=== PATIENT | female | born 1960 | race Caucasian/White ===

== ENCOUNTER 2021-04-17 09:15 | Emergency (ER) | payer MEDICAID, SELFPAY ==
[2021-04-17 09:23] VITALS: BMI 34.3
[2021-04-17 09:37] VITALS: BP 110/72; PULSE 70; RESP 18; O2SAT 93
--- NOTE | 2021-04-17 09:45 | XRR_ITS ---
PROCEDURE INFORMATION: Exam: XR Left Knee Exam date and time: 04/17/2021 9:45 AM Age: 61 years old Clinical indication: Injury or trauma; Fall; Blunt trauma; Knee; Left; Additional info: Injury/fall TECHNIQUE: Imaging protocol: XR Left knee. Views: 3 views. COMPARISON: No relevant prior studies available. FINDINGS: Bones/joints: Sequela of left total knee arthroplasty in expected alignment. Negative for fracture. No signs of hardware loosening. Soft tissues: Normal. XR/XR knee LT 3V* [id number] IMPRESSION: No acute findings. Radiation Dose CTDIVOL = (mGy): DLP = (mGy-cm)
--- NOTE | 2021-04-17 09:45 | XRR_ITS ---
PROCEDURE INFORMATION: Exam: XR Right Foot Exam date and time: 04/17/2021 9:45 AM Age: 61 years old Clinical indication: Injury or trauma; Fall; Blunt trauma; Foot; Right; Additional info: Pain swelling to digit TECHNIQUE: Imaging protocol: XR Right foot. Views: 1 or 2 views. COMPARISON: No relevant prior studies available. FINDINGS: Bones/joints: Osseous structures are intact. No evidence of fracture. Mild degenerative narrowing of the 1st MTP. Otherwise the joint spaces are preserved. Moderate sized calcaneal spur noted. Soft tissues: Normal. XR/XR foot RT 2V [id number] IMPRESSION: No acute findings. Radiation Dose CTDIVOL = (mGy): DLP = (mGy-cm)
--- NOTE | 2021-04-17 09:45 | W.ED.EXTPRO ---
HPI - Extremity Problem General: Chief complaint: Extremity Problem,Nontraumatic Stated complaint: FALL, LEG/ FEET PAIN Time Seen by Provider: 04/17/21 09:23 Source: patient, family and old records reviewed Mode of arrival: ambulatory History of Present Illness: HPI Narrative: 61-year-old female presents to emergency department chief complaint of left knee pain after falling she reports that she has had some right-sided toe pain has been ongoing and swelling to this third digit of the right toe for quite some time reports that she developed a toe fungal infection to the toes in the right foot which she has been treating outpatient she reports that due to walking differently on that foot she recently tripped and fell directly onto her left knee. MD Complaint: extremity pain, extremity swelling, joint swelling and joint pain Onset (ago): day(s) (2) Pain Consistency: constant Location: left and knee Quality: aching and sharp Radiation: none Relieving factors: immobilization Exacerbating factors: range of motion and weight bearing Associated symptoms: Reports no associated symptoms; Deny chest pain, fever(s) or rash Review of Systems General: Reports: 10 or more systems reviewed and unremarkable except in HPI and below Const: Denies: fever(s), chills, fatigue or malaise Eyes: Denies: change in vision or blurry vision Card: Denies: chest pain or palpitations Resp: Denies: dyspnea or productive cough GI: Denies: abdominal pain, nausea or vomiting : Denies: flank pain Musc: Reports: extremity pain, extremity swelling, joint swelling, joint redness and limited range of motion Skin/Breast: Denies: rash or pruritus Neuro: Denies: headache(s) Psych: Denies: anxiety or depression Reji/Lymph: Denies: easy bleeding All/Imm: Denies: urticaria, throat swelling or facial swelling PFSH ED PFSH: Medical History Anxiety GERD (gastroesophageal reflux disease) History of supraventricular tachycardia Ablation done 2001 HTN (hypertension) Hx of colonic polyps Irritable bowel syndrome with diarrhea Obesity (BMI 30-39.9) Osteoarthritis involving multiple joints on both sides of body Surgical History History of hysterectomy History of left knee replacement Hx of foot surgery Hx of melanoma excision Hx of tonsillectomy Family History Mother Cancer Stroke Dementia Hypertension Grandfather Diabetes Father Cancer Social History Alcohol intake: current Alcohol intake frequency: few times a week Marital status: Number of children: 2 Number of grandchildren: 6 Current occupational status: unemployed and disabled Physical Exam Const: COMMON NORMALS: no acute distress, patient oriented x3 and healthy appearing HENMT: COMMON NORMALS: normocephalic and atraumatic HEAD & SCALP: normocephalic and atraumatic Eye: COMMON NORMALS: Equal, round and reactive pupils present and EOMs intact bilaterally PUPIL: Yes Equal, round and reactive pupils present Neck/C-Spine: COMMON NORMALS: full ROM, supple and no JVD Lymph: LYMPHATIC: no lymphadenopathy noted Chest: COMMONS NORMALS: normal inspection of the chest and normal palpation of entire chest wall Resp: COMMON NORMALS: normal respiratory effort, No retractions and clear to auscultation bilaterally EFFORT & INSPECTION: Yes able to speak in complete sentences and Yes symmetric chest movement AUSCULTATION: clear to auscultation bilaterally Cardio: COMMON NORMALS: no JVD, regular rate and regular rhythm RATE: regular rate RHYTHM: regular rhythm GI: COMMON NORMALS: Normal to inspection, nondistended, normoactive bowel sounds present, Soft to palpation and non-tender INSPECTION: Yes normal to inspection PALPATION: Yes Soft to palpation : COMMON NORMALS: Yes no CVA tenderness BLADDER/KIDNEY EXAM: Yes no CVA tenderness Back/Pelvis: COMMON NORMALS: no CVA tenderness Extremity: NARRATIVE EXTREMITY EXAM: Moderate swelling appreciated to the second right great toe concerning for secondary cellulitis and possible paronychia. In addition there is moderate swelling pain and tenderness noted to the anterior left knee pain along the area of the patellar tendon as well as quadriceps tendon are prominent. Neurovascularly intact distally GENERAL: Yes weight-bearing difficulty LEFT LOWER EXTREMITY: Yes knee joint Neuro: COMMON NORMALS: patient oriented x3, CN's II-XII intact bilaterally, moves all extremities and no focal motor deficits Psych: COMMON NORMALS: mental status grossly normal, Normal thought process present, cooperative and normal affect THOUGHT PROCESS: Normal thought process present Skin: COMMON NORMALS: no rashes or lesions noted GENERAL SKIN EXAM: no rashes or lesions noted Course ED course: Due to the patient symptom condition x-ray imaging of the knee and the right foot were obtained this reveals no obvious bony abnormality I believe the patient has internal derangement of the left knee will be treating her accordingly in regards to the right toe I believe the patient has a secondary cellulitis. She will be started antibiotics for this. Advised that she further follow-up primary care doctor 2 to 3 days which was advised to return in the interim if any of her symptoms persist or worse. Vital Signs: Vital signs: Vital Signs Pulse Rate 70 04/17/21 09:37 Respiratory Rate 18 04/17/21 09:37 Blood Pressure 110/72 04/17/21 09:37 Pulse Oximetry 93 04/17/21 09:37 Discharge Plan Discharge Patient Disposition: Home Clinical Impression: Cellulitis, Internal derangement of left knee Condition: Stable Prescriptions: New hydrocodone-acetaminophen 5-325 mg tablet 1 tab PO Q8H PRN (Reason: pain) Qty: 15 RF: 0 cephalexin 500 mg capsule 500 mg PO TID 7 Days Qty: 21 RF: 0 No Action amlodipine 5 mg tablet 5 mg PO BID Qty: 180 RF: 3 clonidine HCl 0.2 mg tablet 0.2 mg PO BID Qty: 180 RF: 3 colestipol 1 gram tablet 2 g PO BID Qty: 360 RF: 3 fluoxetine 40 mg capsule 40 mg PO DAILY Qty: 90 RF: 3 losartan 100 mg tablet 100 mg PO DAILY Qty: 90 RF: 3 metoprolol succinate 100 mg tablet extended release 24 hr 200 mg PO DAILY Qty: 180 RF: 3 omeprazole 20 mg capsule,delayed release(DR/EC) 20 mg PO BID Qty: 180 RF: 3 Discharge Orders: Discharge ED (Routine); Ordered 04/17/21 Ordered By: Alexx Metz Discharge Activity: Limit activity as instructed and Use walker/crutches as instructed Patient Instructions: Cellulitis (ED), Knee Pain (ED), Knee Immobilizer (ED), Opioid Safety Activity Restrictions/Additional Instructions: Please follow-up with your primary care doctor in 2 to 3 days, take medications as prescribed use the knee immobilizer as well as crutches and till seen by your primary care doctor and return in the interim if any of your symptoms persist or worse. Coding Level of Care Code ED Licensed Tax Consultant for Diana Fwd Exam Comprehensive
--- NOTE | 2021-04-17 12:26 | PC.NURSE ---
Patient denied receipt of chrutches citing she has a pair at home already. notified.
[2021-04-17 12:28] VITALS: BP 122/84; PULSE 67; RESP 14; O2SAT 93
== END 2021-04-17 12:25 | disposition home or self-care (01) ==
PROVIDERS: Emergency Provider Emergency Medicine
DX: M23.92 Unspecified internal derangement of left knee (principal); L03.031 Cellulitis of right toe; I10 Essential (primary) hypertension; Z96.652 Presence of left artificial knee joint
CPT/HCPCS: 29530; 73562; 73620; 99283

== ENCOUNTER → 2021-06-08 10:28 | Outpatient (BNVA) | payer SELFPAY | PROVIDERS: Visit Provider Specialist | DX: M25.562 Pain in left knee (principal); Z96.652 Presence of left artificial knee joint | CPT/HCPCS: 73560; 73565 ==

== ENCOUNTER → 2021-06-17 11:07 | Outpatient (BNVA) | payer SELFPAY | PROVIDERS: Visit Provider Surgery | DX: Z20.822 Contact with and (suspected) exposure to COVID-19 (principal); Z86.010 Personal history of colon polyps | CPT/HCPCS: 87635 ==

== ENCOUNTER 2021-06-23 07:05 | Day surgery (SDC) | payer MEDICAID, SELFPAY ==
[2021-06-20 12:43] VITALS: BMI 34.3
--- NOTE | 2021-06-23 07:33 | ANES.PREANE2 ---
Pre-Anesthetic Assessment Pre-Anesthetic Assessment: Height/Weight: Height 1.63 m Weight 90.718 kg Preop Diagnosis: Colonoscopy Proposed Procedure: Operation Date: 06/23/21 08:15 Proposed Procedures p Colonoscopy 63279 Z86.010(Not Applicable) - Garry Perdomo MD Familial anesthetic complications: None Was Beta Florentin taken within 24 hours: Yes Was Clonidine taken within 24 hours: N/A Social: Social History: No alcohol and No tobacco Exam: Pre-Anes Outpt Exam: alert, oriented x 3, clear to auscultation bilaterally and regular rate & rhythm Airway: Submandibular: WNL Cervical ROM: WNL MP: 2 Dentition: Chipped Additional comments: Missing teeth History/ROS: No significant history except as noted and No significant complaints Pulmonary: Pulmonary: None reported CV/HEM: CV/HEM: HTN : : None reported Hepatic: Hepatic: None reported GI: GI: GERD Metabolic: Metabolic: None reported Musc/skel: Musc/skel: None reported Neuropsych: Neuropsych: Anxiety Anesthetic Plan: ASA status: 2 Anesthesia: Anesthesia Evaluation, General and MAC Other: We discussed risk, benefits, and anesthesia spectrum of MAC anesthesia including possible recall of intraop stimuli/pain. Patient agrees to proceed with MAC. Risk of > 500 ml blood loss (7ml/kg in children): No Other Pertinent Information: Brother 10 years ago in OR from complications of C. difficile PFSH Anesthesia PFSH: Medical History Anxiety GERD (gastroesophageal reflux disease) History of supraventricular tachycardia Ablation done 2001 HTN (hypertension) Hx of colonic polyps Irritable bowel syndrome with diarrhea Obesity (BMI 30-39.9) Osteoarthritis involving multiple joints on both sides of body Surgical History History of colonoscopy with polypectomy 4-5 years ago History of hysterectomy History of left knee replacement Hx of foot surgery Hx of melanoma excision Hx of tonsillectomy Family History Mother Cancer Stroke Dementia Hypertension Grandfather Diabetes Father Cancer Social History Alcohol intake: current Alcohol intake frequency: few times a week Marital status: Number of children: 2 Number of grandchildren: 6 Current occupational status: unemployed and disabled Data Anesthesia Cardiac Studies: No Data to Display
[2021-06-23] MEDS: sodium chloride 0.9% 1,000 ML 30 ML IV (07:49)
--- NOTE | 2021-06-23 08:24 | P.HP_ITS ---
Same Day Surgery H&P Indication for Procedure/HPI DATE OF PROCEDURE: June 23, 2021 CHIEF COMPLAINT/INDICATIONFOR SURGICAL PROCEDURE: Colon polyps PREOP DIAGNOSIS: Family history of colon cancer and personal history of colon po lyps PLANNED PROCEDRUE: Operation Date: 06/23/21 08:15 Proposed Procedures p Colonoscopy 96255 Z86.010(Not Applicable) - Garry Perdomo MD 04/14/2021 This is a pleasant 61 years old female patient presents to my practice with history of colon polyps. And intermittent bleeding per rectum. Patient also reports her mom had history of colon cancer age of 70. Last colonoscopy was done 5 years ago. She also reports when I asked her about the scar on her abdomen that was for melanoma of the anterior abdominal wall. Patient is referred today to discuss surveillance colonoscopy 06/23/2021 Patient comes today for surveillance colonoscopy ROS All systems have been reviewed negative except as per the above or per problem list Medications/Allergies* Allergies/Adverse Reactions Allergy/AdvReac Type Severity Reaction Status Date / Time amitriptyline Allergy Mild ALGY-Hives Verified 06/23/21 07:40 amoxicillin AdvReac Intermediate ADR-Diarrhe Verified 06/23/21 07:40 a HCTZ Allergy Severe SOB and Uncoded 06/23/21 07:40 Chest pain Current Medications: Generic Name Dose Route Start Last Admin Trade Name Freq PRN Reason Stop Dose Admin Sodium Chloride 1,000 mls @ 30 mls/hr 06/23/21 08:00 06/23/21 07:49 Sodium Chloride 0.9% IV 06/24/21 07:59 30 mls/hr .Q24H DANAE Administration Pertinent History/Comorbid Conditions* Medical History (Updated 06/09/21 @ 16:25 by Heydi Sapp MD) Anxiety GERD (gastroesophageal reflux disease) History of supraventricular tachycardia Ablation done 2001 HTN (hypertension) Hx of colonic polyps Irritable bowel syndrome with diarrhea Obesity (BMI 30-39.9) Osteoarthritis involving multiple joints on both sides of body Surgical History (Updated 06/09/21 @ 16:25 by Heydi Sapp MD) History of colonoscopy with polypectomy 4-5 years ago History of hysterectomy History of left knee replacement Hx of foot surgery Hx of melanoma excision Hx of tonsillectomy Family History (Updated 04/05/21 @ 11:04 by Marian Rodarte LPN) Mother Diabetes Grandfather Dementia Mother Cancer Mother Father Hypertension Mother Stroke Mother Social History Alcohol intake: current Alcohol intake frequency: few times a week Marital status: Number of children: 2 Number of grandchildren: 6 Current occupational status: unemployed and disabled Pertinent Exam Findings alert, oriented x 3 and procedure specific exam findings (Abdominal examination nontender nondistended soft) Recommendations Surgery/Procedure today (Surveillance colonoscopy) Other Plans: Plan of care; After thorough history and physical examination and reviewing the chart, plan to perform surveillance colonoscopy. I discussed with the patient in details the risks,benefits,alternatives and indications.The risk of aspiration, bleeding, soft tissue injury, perforation of the colon and other potential concomitant complications were explained to the patient in details,also the potential need for Laproscoy/Laparotomy to repair any related complications including but not limited to colectomy and or Closotomy.The patient understood this well and did agree to proceed. Rationale was carefully and clearly discussed with the patient.Appropriate informed consent have been reviewed and signed All questions have been answered and all concerns have been addressed to patient 's satisfaction. Verbal and written Instructions were given to the patient for colonoscopy prep Coding Level of Care Code Acute Hand Weaver for Diana Burden
[2021-06-23 08:45] VITALS: BP 86/53; PULSE 71; RESP 16; TEMP 36.1; O2SAT 94
[2021-06-23 08:56] VITALS: BP 104/69; PULSE 72; RESP 18; O2SAT 97
--- NOTE | 2021-06-23 10:33 | ANE.PACU2 ---
Inpatient post-anesthesia follow up: Airway intact: Yes Vital signs: Temperature 97.0 F Pulse Rate 72 Respiratory Rate 18 Blood Pressure 104/69 Pulse Oximetry 97 Oxygen Delivery Me thod Room Air Oxygen Flow Rate Fraction of Inspir ed Oxygen Hydration adequate: Yes Nausea and vomiting: No Pain level: 1 Mental status: Baseline
== END 2021-06-23 09:10 | disposition home or self-care (01) ==
PROVIDERS: Visit Provider Surgery
PROC: 0DJD8ZZ Inspection of Lower Intestinal Tract, Via Natural or Artificial Opening Endoscopic (ICD-10-PCS; CPT 45378; principal; 2021-06-23 08:15)
DX: Z12.11 Encounter for screening for malignant neoplasm of colon (principal); Z86.010 Personal history of colon polyps; Z80.0 Family history of malignant neoplasm of digestive organs; F41.9 Anxiety disorder, unspecified; K21.9 Gastro-esophageal reflux disease without esophagitis; E66.9 Obesity, unspecified; Z68.34 Body mass index [BMI] 34.0-34.9, adult; I10 Essential (primary) hypertension
CPT/HCPCS: 45378; J2704; J7030

== ENCOUNTER → 2021-07-01 08:22 | Outpatient (BNVA) | payer MEDICAID, SELFPAY | PROVIDERS: Visit Provider Family Medicine Adult Medicine | DX: I10 Essential (primary) hypertension (principal); H05.20 Unspecified exophthalmos; L03.115 Cellulitis of right lower limb; L03.116 Cellulitis of left lower limb; E66.9 Obesity, unspecified | CPT/HCPCS: 80053; 83036; 84443; 85025 ==

== ENCOUNTER 2021-07-11 14:58 | Emergency (ER) | payer MEDICAID, SELFPAY ==
[2021-07-11 15:21] VITALS: BP 131/88; PULSE 73; RESP 28; TEMP 36.2; O2SAT 100; BMI 36.0
--- NOTE | 2021-07-11 15:30 | XRR_ITS ---
PROCEDURE INFORMATION: Exam: XR Chest Exam date and time: 07/11/2021 3:30 PM Age: 61 years old Clinical indication: Shortness of breath; Additional info: SOB TECHNIQUE: Imaging protocol: XR of the chest. Views: 1 view. COMPARISON: CR XR knees AP WB w LT lmt ORTH 06/08/2021 10:36 AM FINDINGS: Lungs: Lungs are hyperinflated but clear. No consolidation. Pulmonary vascularity is within normal limits. Pleural spaces: Unremarkable. No pleural effusion. No pneumothorax. Heart/Mediastinum: Unremarkable. No cardiomegaly. Bones/joints: No acute abnormality. XR/XR chest 1V portable [id number] IMPRESSION: No acute findings.
[2021-07-11 15:44] LABS: Basophils # 0.1 10^3/uL (0.0-0.1); Basophils % 0.9 %; Eosinophils # 0.1 10^3/uL (0.0-0.8); Eosinophils % 0.6 %; Hematocrit 40.8 % (37.0-47.0); Hemoglobin 13.8 g/dL (11.5-15.3); Lymphocytes # 1.4 10^3/uL (0.8-4.8); Lymphocytes % 17.2 %; Mean Corpuscular HGB Conc 33.8 g/dL (30.0-36.0); Mean Corpuscular Hemoglobin 31.8 pg (28.0-34.0); Mean Platelet Volume 9.6 fL (7.4-10.4); Monocytes # 0.2 10^3/uL (0.2-0.9); Monocytes % 2.7 %; Neutrophils # 6.12 10^3/uL (1.8-7.7); Neutrophils % 78.2 %; Nucleated Red Blood Cells % 0 %; Platelet Count 375 10^3/cmm (130-400); Red Blood Count 4.34 10^6/uL (4.1-5.3); White Blood Count 7.8 10^3/uL (4.0-10.0)
[2021-07-11 16:05] LABS: Alanine Aminotransferase 65 U/L (0-33); Albumin Level 4.3 g/dL (3.5-5.2); Alkaline Phosphatase 153 IU/L (35-105); Aspartate Amino Transferase 107 U/L (0-32); Blood Urea Nitrogen 13 mg/dL (8-23); Calcium 9.4 mg/dL (8.5-10.5); Carbon Dioxide 16 mmol/L (22-29); Chloride 97 mmol/L (98-107); Globulin 3.2 g/dL (1.3-4.6); Glomerular Filtration Rate 38.2 mL/min (90-130); Glucose 135 mg/dL (65-115); Lipase 36 U/L (13-60); Osmolality Calculated 278 mOsm/kg (285-295); Sodium 133 mmol/L (136-145); Total Bilirubin 0.9 mg/dL (0.15-1.2); Total Protein 7.5 g/dL (6.6-8.7)
[2021-07-11 16:06] LABS: Troponin(5th) Baseline 24 ng/L (0-10)
[2021-07-11 16:14] LABS: Anion Gap 24.4 (5-19); Potassium 4.4 mmol/L (3.5-5.1)
--- NOTE | 2021-07-11 16:21 | USR_ITS ---
PROCEDURE INFORMATION: Exam: US Abdomen, Limited; Right Upper Quadrant Exam date and time: 07/11/2021 4:21 PM Age: 61 years old Clinical indication: Abdominal pain; Epigastric; Additional info: Upper ab pain, vomiting, elevated lfts TECHNIQUE: Imaging protocol: US abdomen. Real time ultrasound with image documentation. Limited exam focused on the right upper quadrant. COMPARISON: CR XR knees AP WB w LT lmt ORTH 06/08/2021 10:36 AM FINDINGS: Liver: Liver is enlarged measuring 17.4 cm in length. No masses. There is mild increased echogenicity of the liver with attenuation of the ultrasound beam which is most commonly due to fatty infiltration. Gallbladder: Normal. No gallstones. There is no gallbladder wall thickening. Gallbladder wall measures 2.3 mm in thickness. Common bile duct: Normal. No stones. No dilation. Common bile duct measures 2.9 mm. Pancreas: Obscured by bowel gas artifact. Right kidney: Normal. No mass. No hydronephrosis. Right kidney measures 9.4 cm in length. US/US gall bladder [id number] IMPRESSION: No acute findings. Probable fatty infiltration of the liver.
[2021-07-11] MEDS: ondansetron 2 mg/ML SDV 2 mL 4 MG IVP (16:35)
--- NOTE | 2021-07-11 16:35 | PC.NURSE ---
Jessie AGUAYO pulled by me given by Reyes Olson EMT-P
[2021-07-11 16:49] VITALS: BP 128/84; PULSE 76; RESP 22; O2SAT 99
--- NOTE | 2021-07-11 16:52 | ED_ITS ---
Documented by User: PAMELA Cook 07/11/21 16:54 HPI - Abdominal Pain General: Chief Complaint: Abdominal Pain Stated Complaint: SOB. ABD PAIN Time Seen by Provider: 07/11/21 16:51 Source: patient Mode of arrival: wheelchair Limitations: no limitations History of Present Illness: Patient is a 61-year-old female who presented to the ED today with complaint of upper abdominal/epigastric pain and repetitive episodes of vomiting. Symptoms initially started approximately 3 days ago and have progressed over the weekend. Lab work-up initiated from triage. [facility] ED PFSH: Medical History Anemia in chronic illness Anxiety Bilateral lower leg cellulitis Bulging eyes GERD (gastroesophageal reflux disease) History of supraventricular tachycardia Ablation done 2001 HTN (hypertension) Hx of colonic polyps Hypokalemia Hypothyroidism (acquired) Irritable bowel syndrome with diarrhea Obesity (BMI 30-39.9) Osteoarthritis involving multiple joints on both sides of body Surgical History History of colonoscopy with polypectomy 4-5 years ago History of hysterectomy History of left knee replacement Hx of foot surgery Hx of melanoma excision Hx of tonsillectomy Family History Mother Cancer Stroke Dementia Hypertension Grandfather Diabetes Father Cancer Social History Smoking and tobacco status: never smoked Alcohol intake: current Alcohol intake frequency: few times a week Marital status: Number of children: 2 Number of grandchildren: 6 Current occupational status: unemployed and disabled Course Vital Signs: Vital signs: Vital Signs Temperature 98.1 F 07/11/21 21:45 Pulse Rate 79 07/11/21 21:45 Respiratory Rate 18 07/11/21 21:45 Blood Pressure 151/79 07/11/21 21:45 Pulse Oximetry 99 07/11/21 21:45 MDM - Abdominal Pain Medical Decision Making Patient was eventually moved to vertical flow secondary to her being extremely uncomfortable out in the waiting room and repetitive episodes of vomiting. IV was established and IV zofran and morphine were ordered. I tried to go and assess patient but she was in [place] during that time. Care will be assumed by Jose C Saluda, PA-C for assessment and further work up if needed. Lab Data : 07/11/21 15:30 07/11/21 15:30 Labs/Radiology: Radiology Impressions Chest X-Ray 07/11/21 15:30 IMPRESSION: No acute findings. Gallbladder Ultrasound 07/11/21 16:21 IMPRESSION: No acute findings. Probable fatty infiltration of the liver. Abdomen/Pelvis CT 07/11/21 18:13 IMPRESSION: There is a segment of sigmoid colonic wall thickening consistent with mild acute colitis/diverticulitis. As an underlying colonic malignancy cannot be excluded, a follow-up examination after a course of treatment is recommended if clinically warranted. No abscess or free air. Laboratory Results WBC 7.8 10^3/uL (4.0-10.0) 07/11/21 15:30 RBC 4.34 10^6/uL (4.1-5.3) 07/11/21 15:30 Hgb 13.8 g/dL (11.5-15.3) 07/11/21 15: Hct 40.8 % (37.0-47.0) 07/11/21 15:30 MCV 94.0 fl (81-99) 07/11/21 15:30 MCH 31.8 pg (28.0-34.0) 07/11/21 15:30 MCHC 33.8 g/dL (30.0-36.0) 07/11/21 15:30 RDW 16.0 % (12.1-15.1) H 07/11/21 15:30 Plt Count 375 10^3/cmm (130-400) 07/11/21 15:30 MPV 9.6 fL (7.4-10.4) 07/11/21 15:30 Neut % (Auto) 78.2 % 07/11/21 15:30 Lymph % (Auto) 17.2 % 07/11/21 15:30 [place] % (Auto) 2.7 % 07/11/21 15:30 Eos % (Auto) 0.6 % 07/11/21 15:30 Baso % (Auto) 0.9 % 07/11/21 15:30 Neut # (Auto) 6.12 10^3/uL (1.8-7.7) 07/11/21 15:30 Lymph # (Auto) 1.4 10^3/uL (0.8-4.8) 07/11/21 15:30 [place] # (Auto) 0.2 10^3/uL (0.2-0.9) 07/11/21 15:30 Eos # (Auto) 0.1 10^3/uL (0.0-0.8) 07/11/21 15:30 Baso # (Auto) 0.1 10^3/uL (0.0-0.1) 07/11/21 15:30 Nucleated RBC % (auto) 0 % 07/11/21 15:30 Nucleated RBCs # 0.0 /100WBC 07/11/21 15:30 Sodium 133 mmol/L (136-145) L 07/11/21 15:30 Potassium 4.4 mmol/L (3.5-5.1) 07/11/21 15:30 Chloride 97 mmol/L (98-107) L 07/11/21 15:30 Carbon Dioxide 16 mmol/L (22-29) L 07/11/21 15:30 Anion Gap 24.4 (5-19) H 07/11/21 15:30 BUN 13 mg/dL (8-23) 07/11/21 15:30 Creatinine 1.4 mg/dL (0.5-0.9) H 07/11/21 15:30 GFR Calculation 38.2 mL/min (90-130) L 07/11/21 15:30 Glucose 135 mg/dL (65-115) H 07/11/21 15:30 Calculated Osmolality 278 mOsm/kg (285-295) L 07/11/21 15:30 Lactic Acid 2.3 mmol/L (0.5-2.2) H 07/11/21 20:50 Calcium 9.4 mg/dL (8.5-10.5) 07/11/21 15:30 Total Bilirubin 0.9 mg/dL (0.15-1.2) 07/11/21 15:30 AST 107 U/L (0-32) H 07/11/21 15:30 ALT 65 U/L (0-33) H 07/11/21 15:30 Alkaline Phosphatase 153 IU/L (35-105) H 07/11/21 15:30 Troponin T Baseline 24 ng/L (0-10) H 07/11/21 15:30 Troponin T 120 Minute 19.32 ng/L (0-10) H 07/11/21 18:40 Delta Troponin T -4.68 ABS# (0-10) L 07/11/21 18:40 Total Protein 7.5 g/dL (6.6-8.7) 07/11/21 15:30 Albumin 4.3 g/dL (3.5-5.2) 07/11/21 15:30 Globulin 3.2 g/dL (1.3-4.6) 07/11/21 15:30 Lipase 36 U/L (13-60) 07/11/21 15:30 Discharge Plan Discharge Patient Disposition: Home Clinical Impression: Colitis, Elevated serum creatinine, Acute dehydration Condition: Stable Prescriptions: New metoclopramide HCl 10 mg tablet 10 mg PO Q6H PRN (Reason: nausea and vomiting) Qty: 20 0RF ciprofloxacin HCl 500 mg tablet 500 mg PO BID 7 Days Qty: 14 0RF metronidazole 500 mg tablet 500 mg PO Q8H 7 Days Qty: 21 0RF No Action clonidine HCl 0.2 mg tablet 0.2 mg PO BID Qty: 180 3RF colestipol 1 gram tablet 2 g PO BID Qty: 360 3RF fluoxetine 40 mg capsule 40 mg PO DAILY Qty: 90 3RF losartan 100 mg tablet 100 mg PO DAILY Qty: 90 3RF omeprazole 20 mg capsule,delayed release(DR/EC) 20 mg PO BID Qty: 180 3RF amlodipine 5 mg tablet 5 mg PO DAILY Qty: 90 3RF sulfamethoxazole-trimethoprim 800-160 mg tablet 1 tab PO BID Qty: 20 0RF aspirin 81 mg tablet,chewable 81 mg PO DAILY Qty: 100 3RF metoprolol succinate 100 mg tablet extended release 24 hr See Rx Instructions .ROUTE .COMPLEX Qty: 180 0RF Dose Instruction: TAKE 2 TABLETS BY MOUTH DAILY FOR BLOOD PRESSURE Rx Instructions: TAKE 2 TABLETS BY MOUTH DAILY FOR BLOOD PRESSURE furosemide 20 mg tablet 20 mg PO QAM Qty: 30 5RF levothyroxine 25 mcg tablet 25 mcg PO DAILY Qty: 30 5RF ferrous sulfate 325 mg (65 mg iron) tablet 325 mg PO DAILY Qty: 30 5RF Rx Instructions: may cause constipation potassium chloride 20 mEq tablet extended release 20 meq PO DAILY Qty: 30 5RF Discharge Orders: Discharge ED (Routine); Ordered 07/11/21 Ordered By: Jose C Mckeon Discharge Diet: Advance as tolerated and Clear Liquid Discharge Activity: Increase activity as tolerated Patient Instructions: Colitis (ED), Opioid Safety Activity Restrictions/Additional Instructions: Follow-up with medical provider as directed within the next 3 to 5 days to be reevaluated and to have your serum creatinine level rechecked. Make sure you are drinking plenty of fluids and staying hydrated. Take medications as prescribed. Return to the ER or your medical provider if condition worsens. Please read and understand discharge instructions. Thank you for choosing [facility] for your healthcare needs today. Please realize this is an emergency room and that we are providing you with a medical screening exam and this may not be complete and all inclusive of all the testing and or work up that you may need to determine your ailment or severity of your illness. It is very important that you follow up as instructed or that you return to the Emergency Department should you have concerns or if your condition changes or worsens in any way. Sign Out Sign Out Data: Patient Sign Out occurred on 07/11/21 at 17:03. Patient's care was discussed, and care was transferred from to PAMELA Arceo. 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 ABD PAIN Time Seen by Provider: 07/11/21 16:51 History of Present Illness: Patient is a 61-year-old female who presented to the ED today with complaint of upper abdominal/epigastric pain and repetitive episodes of vomiting. Symptoms initially started this morning. Lab work-up initiated from triage. Patient also reports having diarrhea for the past couple days. Her abdominal pain is located in the epigastric region. She says she has never had pain like this before. She does take omeprazole and has been out of her medication for the past couple days, so she has not been taking it her abdominal pain is located in the epigastric region. She says she has never had pain like this before. She does take omeprazole but has been out of her medication for the past couple days. Associated Symptoms: Reports diarrhea, nausea and vomiting; Denies chills, constipation, dysuria, fever(s), hematochezia and hematuria Review of Systems Const: Denies: fever(s), chills or fatigue Eyes: Denies: change in vision or eye discomfort ENMT: Denies: throat pain, odynophagia, nasal discharge or nasal congestion Card: Denies: chest pain, palpitations, edema, swelling of feet/ankles, dyspnea on exertion or orthopnea Resp: Denies: dyspnea, productive cough or non-productive cough GI: Reports: abdominal pain (epigastric), nausea, vomiting and diarrhea; Denies: constipation or hematochezia : Denies: flank pain, dysuria or hematuria Musc: Denies: neck pain, back pain or extremity swelling Skin/Breast: Denies: rash or new lesions Neuro: Denies: headache(s) PFSH ED PFSH: Medical History Anemia in chronic illness Anxiety Bilateral lower leg cellulitis Bulging eyes GERD (gastroesophageal reflux disease) History of supraventricular tachycardia Ablation done 2001 HTN (hypertension) Hx of colonic polyps Hypokalemia Hypothyroidism (acquired) Irritable bowel syndrome with diarrhea Obesity (BMI 30-39.9) Osteoarthritis involving multiple joints on both sides of body Surgical History History of colonoscopy with polypectomy 4-5 years ago History of hysterectomy History of left knee replacement Hx of foot surgery Hx of melanoma excision Hx of tonsillectomy Family History Mother Cancer Stroke Dementia Hypertension Grandfather Diabetes Father Cancer Social History Smoking and tobacco status: never smoked Alcohol intake: current Alcohol intake frequency: few times a week Marital status: Number of children: 2 Number of grandchildren: 6 Current occupational status: unemployed and disabled Physical Exam Const: COMMON NORMALS: patient oriented x3 and alert GENERAL APPEARANCE: cooperative and ill appearing (pt is dry heaving during history and exam) HENMT: COMMON NORMALS: normocephalic HEAD & SCALP: normocephalic MOUTH: moist mucous membranes abnormal Details: parched THROAT: posterior oropharynx normal and uvula midline Eye: COMMON NORMALS: Equal, round and reactive pupils present and conjunctivae normal CONJUNCTIVA: Yes conjunctivae normal PUPIL: Yes Equal, round and reactive pupils present Neck/C-Spine: COMMON NORMALS: supple GENERAL: Yes normal visual inspection Resp: COMMON NORMALS: normal respiratory effort, No retractions, No use of accessory muscles and clear to auscultation bilaterally AUSCULTATION: clear to auscultation bilaterally Cardio: COMMON NORMALS: regular rate, regular rhythm, S1 normal heart sound present, S2 normal heart sound present, No gallops present (Cardio), No clicks present (Cardio), No murmurs present (Cardio) and Peripheral pulses 2+ throughout RATE: regular rate RHYTHM: regular rhythm HEART SOUNDS: S1 normal heart sound present and S2 normal heart sound present PERIPHERAL PULSES: Peripheral pulses 2+ throughout GI: COMMON NORMALS: Normal to inspection, nondistended, normoactive bowel sounds present, Soft to palpation and no masses PALPATION: Yes Soft to palpation and Yes Tenderness to palpation present (GI) (epigastric tenderness) : COMMON NORMALS: Yes no CVA tenderness BLADDER/KIDNEY EXAM: Yes no CVA tenderness Back/Pelvis: COMMON NORMALS: no CVA tenderness Extremity: COMMON NORMALS: normal to inspection Neuro: COMMON NORMALS: patient oriented x3 SENSORIUM/ORIENTATION: Yes alert GAIT: Yes Normal gait present Skin: GENERAL SKIN EXAM: dry skin Course Reevaluation(s): Reevaluation #1: After patient received IV Dilaudid and Reglan her symptoms resolved. She had no more abdominal pain and nausea and vomiting stopped as well. Patient says she felt a lot better. Time: 20:10 Vital Signs: Vital signs: Vital Signs Temperature 98.1 F 07/11/21 21:45 Pulse Rate 79 07/11/21 21:45 Respiratory Rate 18 07/11/21 21:45 Blood Pressure 151/79 07/11/21 21:45 Pulse Oximetry 99 07/11/21 21:45 MDM - Abdominal Pain Medical Decision Making Patient was eventually moved to vertical flow secondary to her being extremely uncomfortable out in the waiting room and repetitive episodes of vomiting. IV was established and IV zofran and morphine were ordered. I tried to go and assess patient but she was in [place] during that time. Care will be assumed by Jose C Mckeon PA-C for assessment and further work up if needed. I took over patient care from Alisa Tran PA-C at 5 PM. Patient had epigastric abdominal pain with nausea and vomiting. Patient says she does take omeprazole but has been out of it for the past several days. She had her new prescription for omeprazole picked up today at the pharmacy before arriving to ED. upon exam patient was actively vomiting and had epigastric tenderness. O3.2 creatinine of 1.4 and her AST and ALT were slightly elevated along with her alk phos. Tro ponins were negative. Ultrasound of the gallbladder showed a fatty liver but no other acute findings. CT of the abdomen pelvis showed some mild acute colitis/diverticulitis. No abscess or free air seen. Patient's symptoms were controlled after she received 2 L of IV fluids, Dilaudid and Reglan. Her lactic acid level was rechecked and it went down to 2.3. Patient was feeling a lot better and stable for discharge home. She was diagnosed with colitis, dehydration and elevated serum creatinine. Sent home with prescription for Flagyl, Cipro, Reglan and hydrocodone for pain. She was told to follow-up with her PCP in the next 3 to 5 days for reevaluation and to recheck her elevated creatinine level. Lab Data I reviewed the patient's lab results. : 07/11/21 15:30 07/11/21 15:30 Labs/Radiology: Radiology Impressions Chest X-Ray 07/11/21 15:30 IMPRESSION: No acute findings. Gallbladder Ultrasound 07/11/21 16:21 IMPRESSION: No acute findings. Probable fatty infiltration of the liver. Abdomen/Pelvis CT 07/11/21 18:13 IMPRESSION: There is a segment of sigmoid colonic wall thickening consistent with mild acute colitis/diverticulitis. As an underlying colonic malignancy cannot be excluded, a follow-up examination after a course of treatment is recommended if clinically warranted. No abscess or free air. Laboratory Results WBC 7.8 10^3/uL (4.0-10.0) 07/11/21 15:30 RBC 4.34 10^6/uL (4.1-5.3) 07/11/21 15:30 Hgb 13.8 g/dL (11.5-15.3) 07/11/21 15: Hct 40.8 % (37.0-47.0) 07/11/21: MCV 94.0 fl (81-99) 07/11/21 15: MCH 31.8 pg (28.0-34.0) 07/11/21 15: MCHC 33.8 g/dL (30.0-36.0) 07/11/21: RDW 16.0 % (12.1-15.1) H 07/11/21 15: Plt Count 375 10^3/cmm (130-400) 07/11/21: MPV 9.6 fL (7.4-10.4) 07/11/21: Neut % (Auto) 78.2 % 07/11/21: Lymph % (Auto) 17.2 % 07/11/21: [place] % (Auto) 2.7 % 07/11/21: Eos % (Auto) 0.6 % 07/11/21: Baso % (Auto) 0.9 % 07/11/21: Neut # (Auto) 6.12 10^3/uL (1.8-7.7) 07/11/21: Lymph # (Auto) 1.4 10^3/uL (0.8-4.8) 07/11/21: [place] # (Auto) 0.2 10^3/uL (0.2-0.9) 07/11/21: Eos # (Auto) 0.1 10^3/uL (0.0-0.8) 07/11/21: Baso # (Auto) 0.1 10^3/uL (0.0-0.1) 07/11/21: Nucleated RBC % (auto) 0 % 07/11/21: Nucleated RBCs # 0.0 /100WBC 07/11/21: Sodium 133 mmol/L (136-145) L 07/11/21: Potassium 4.4 mmol/L (3.5-5.1) 07/11/21: Chloride 97 mmol/L (98-107) L 07/11/21 15:30 Carbon Dioxide 16 mmol/L (22-29) L 07/11/21 15:30 Anion Gap 24.4 (5-19) H 07/11/21 15:30 BUN 13 mg/dL (8-23) 07/11/21 15:30 Creatinine 1.4 mg/dL (0.5-0.9) H 07/11/21 15:30 GFR Calculation 38.2 mL/min (90-130) L 07/11/21 15:30 Glucose 135 mg/dL (65-115) H 07/11/21 15:30 Calculated Osmolality 278 mOsm/kg (285-295) L 07/11/21 15:30 Lactic Acid 2.3 mmol/L (0.5-2.2) H 07/11/21 20:50 Calcium 9.4 mg/dL (8.5-10.5) 07/11/21 15:30 Total Bilirubin 0.9 mg/dL (0.15-1.2) 07/11/21 15:30 AST 107 U/L (0-32) H 07/11/21 15:30 ALT 65 U/L (0-33) H 07/11/21 15:30 Alkaline Phosphatase 153 IU/L (35-105) H 07/11/21 15:30 Troponin T Baseline 24 ng/L (0-10) H 07/11/21 15:30 Troponin T 120 Minute 19.32 ng/L (0-10) H 07/11/21 18:40 Delta Troponin T -4.68 ABS# (0-10) L 07/11/21 18:40 Total Protein 7.5 g/dL (6.6-8.7) 07/11/21 15:30 Albumin 4.3 g/dL (3.5-5.2) 07/11/21 15:30 Globulin 3.2 g/dL (1.3-4.6) 07/11/21 15:30 Lipase 36 U/L (13-60) 07/11/21 15:30 Discharge Plan Discharge Patient Disposition: Home Clinical Impression: Colitis, Elevated serum creatinine, Acute dehydration Condition: Stable Prescriptions: New metoclopramide HCl 10 mg tablet 10 mg PO Q6H PRN (Reason: nausea and vomiting) Qty: 20 0RF ciprofloxacin HCl 500 mg tablet 500 mg PO BID 7 Days Qty: 14 0RF metronidazole 500 mg tablet 500 mg PO Q8H 7 Days Qty: 21 0RF No Action clonidine HCl 0.2 mg tablet 0.2 mg PO BID Qty: 180 3RF colestipol 1 gram tablet 2 g PO BID Qty: 360 3RF fluoxetine 40 mg capsule 40 mg PO DAILY Qty: 90 3RF losartan 100 mg tablet 100 mg PO DAILY Qty: 90 3RF omeprazole 20 mg capsule,delayed release(DR/EC) 20 mg PO BID Qty: 180 3RF amlodipine 5 mg tablet 5 mg PO DAILY Qty: 90 3RF sulfamethoxazole-trimethoprim 800-160 mg tablet 1 tab PO BID Qty: 20 0RF aspirin 81 mg tablet,chewable 81 mg PO DAILY Qty: 100 3RF metoprolol succinate 100 mg tablet extended release 24 hr See Rx Instructions .ROUTE .COMPLEX Qty: 180 0RF Dose Instruction: TAKE 2 TABLETS BY MOUTH DAILY FOR BLOOD PRESSURE Rx Instructions: TAKE 2 TABLETS BY MOUTH DAILY FOR BLOOD PRESSURE furosemide 20 mg tablet 20 mg PO QAM Qty: 30 5RF levothyroxine 25 mcg tablet 25 mcg PO DAILY Qty: 30 5RF ferrous sulfate 325 mg (65 mg iron) tablet 325 mg PO DAILY Qty: 30 5RF Rx Instructions: may cause constipation potassium chloride 20 mEq tablet extended release 20 meq PO DAILY Qty: 30 5RF Discharge Orders: Discharge ED (Routine); Ordered 07/11/21 Ordered By: Jose C Mckeon Discharge Diet: Advance as tolerated and Clear Liquid Discharge Activity: Increase activity as tolerated Patient Instructions: Colitis (ED), Opioid Safety Activity Restrictions/Additional Instructions: Follow-up with medical provider as directed within the next 3 to 5 days to be reevaluated and to have your serum creatinine level rechecked. Make sure you are drinking plenty of fluids and staying hydrated. Take medications as prescribed. Return to the ER or your medical provider if condition worsens. Please read and understand discharge instructions. Thank you for choosing [facility] for your healthcare needs today. Please realize this is an emergency room and that we are providing you with a medical screening exam and this may not be complete and all inclusive of all the testing and or work up that you may need to determine your ailment or severity of your illness. It is very important that you follow up as instructed or that you return to the Emergency Department should you have concerns or if your condition changes or worsens in any way. Sign Out Sign Out Data: Patient Sign Out occurred on 07/11/21 at 17:03. Patient's care was discussed, and care was transferred from to PAMELA Arceo. Coding Level of Care Code ED Gas Welding Equipment Mechanic for Diana Fwd Exam Comprehensive
[2021-07-11] MEDS: sodium chloride 0.9% 1,000 ML 999 ML IV ×2 (17:21→20:00)
[2021-07-11 17:27] VITALS: RESP 26
[2021-07-11] MEDS: morphine 4 mg/mL SDV 1 mL IVP (17:27)
[2021-07-11] MEDS: metoclopramide 5 mg/mL SDV 2 mL 10 MG IVP (18:04)
[2021-07-11 18:06] VITALS: RESP 24
[2021-07-11] MEDS: HYDROmorphone 1 mg/mL INJ 1 mL IVP (18:06)
--- NOTE | 2021-07-11 18:13 | CTR_ITS ---
PROCEDURE INFORMATION: Exam: CT Abdomen And Pelvis Without Contrast Exam date and time: 07/11/2021 6:13 PM Age: 61 years old Clinical indication: Nausea and vomiting; Prior surgery; Surgery type: Hyst; Additional info: Epigastric pain, n/v/d TECHNIQUE: Imaging protocol: Computed tomography of the abdomen and pelvis without contrast. Radiation optimization: All CT scans at this facility use at least one of these dose optimization techniques: automated exposure control; mA and/or kV adjustment per patient size (includes targeted exams where dose is matched to clinical indication); or iterative reconstruction. COMPARISON: US gall bladder [id number] 07/11/2021 4:50 PM RADIATION DOSE METRICS: Total DLP (mGy-cm): 1918.66 FINDINGS: Lungs: There is subpleural atelectasis of the dependent portions of the lungs. Diaphragm: A moderate hiatal hernia is present. Liver: There is a diffuse decrease in hepatic parenchymal density, consistent with fatty infiltration. Gallbladder and bile ducts: Normal. No calcified stones. No ductal dilation. Pancreas: The pancreas is normal. Spleen: The spleen is normal. An accessory splenule is present. Adrenal glands: The adrenal glands are normal. Kidneys and ureters: There is no evidence of hydronephrosis. There is no evidence of renal calcifications. Stomach and bowel: There is a segment of sigmoid colonic wall thickening consistent with mild acute colitis/diverticulitis. As an underlying colonic malignancy cannot be excluded, a follow-up examination after a course of treatment is recommended if clinically warranted. There is induration of the fat adjacent to the sigmoid colon. There is no evidence of intestinal perforation or obstruction. The stomach is collapsed but otherwise unremarkable in appearance. Appendix: A normal appendix is identified. Intraperitoneal space: No abscess or free air. Vasculature: There are numerous benign phleboliths in the pelvis. The aorta is normal. Lymph nodes: Unremarkable.No enlarged lymph nodes. Urinary bladder: The bladder is normal. Reproductive: There has been a hysterectomy. Bones/joints: There are moderate degenerative changes in the spine. There is a small disc bulge at L2-L3 with mild degenerative retrolisthesis of L2 on L3 but no critical stenosis. At L4-L5, there is a small bulging vacuum disc without stenosis or significant foraminal narrowing. At L5-S1, there is a small disc bulge with mild bilateral foraminal narrowing but no critical stenosis. Moderate degenerative changes are noted in the lower lumbar spine. Soft tissues: Unremarkable. CT/CT abdomen pelvis wo con [id number] IMPRESSION: There is a segment of sigmoid colonic wall thickening consistent with mild acute colitis/diverticulitis. As an underlying colonic malignancy cannot be excluded, a follow-up examination after a course of treatment is recommended if clinically warranted. No abscess or free air.
[2021-07-11 19:08] LABS: Troponin 5 2HR 19.32 ng/L (0-10)
[2021-07-11 19:09] LABS: Lactic Sepsis W/Reflex 3.2 mmol/L (0.5-2.2)
[2021-07-11 19:11] LABS: Troponin 5 2HR Delta -4.68 ABS# (0-10)
--- NOTE | 2021-07-11 19:15 | PC.NURSE ---
patient report received, respirations even equal and unlabored. patient to CT via wheel chair.
[2021-07-11 20:28] LABS: Reflex Lactate Order REFLEX LACTIC ORDERD
[2021-07-11] MEDS: metroNIDAZOLE 500 MG Tablet PO (20:40)
[2021-07-11] MEDS: ciprofloxacin 500 mg Tablet PO (20:40)
[2021-07-11 21:26] LABS: Lactic Sepsis W/Reflex 2.3 mmol/L (0.5-2.2)
--- NOTE | 2021-07-11 21:35 | ECG_ITS ---
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
[2021-07-11] MEDS: HYDROcodone-acetaminophen 7.5-325 mg Tablet 2 TAB PO (21:43)
[2021-07-11] MEDS: metoclopramide 10 mg Tablet PO (21:43)
[2021-07-11 21:45] VITALS: BP 151/79; PULSE 79; RESP 18; TEMP 36.7; O2SAT 99
[2021-07-11 22:49] LABS: Reflex Lactate Order REFLEX LACTIC ORDERD
== END 2021-07-11 21:48 | disposition home or self-care (01) ==
PROVIDERS: Physician Assistant; Emergency Provider Physician Assistant
DX: K52.9 Noninfective gastroenteritis and colitis, unspecified (principal); E86.0 Dehydration; R74.8 Abnormal levels of other serum enzymes; Z79.82 Long term (current) use of aspirin; I10 Essential (primary) hypertension
CPT/HCPCS: 71045; 74176; 76705; 80053; 83605; 83690; 84484; 85025; 93005; 96361; 96374; 96375; 99284; J1170; J2270; J2405; J2765; J7030; J8597

== ENCOUNTER → 2021-08-05 11:54 | Outpatient (BNVA) | payer MEDICAID, SELFPAY | PROVIDERS: Visit Provider Family Medicine Adult Medicine | DX: E66.9 Obesity, unspecified (principal); I10 Essential (primary) hypertension; D63.8 Anemia in other chronic diseases classified elsewhere; K21.9 Gastro-esophageal reflux disease without esophagitis; E03.9 Hypothyroidism, unspecified | CPT/HCPCS: 80053; 80061; 83721; 85025 ==

== ENCOUNTER → 2021-10-19 11:35 | Outpatient (BNVA) | payer MEDICAID, SELFPAY | PROVIDERS: PCP Family Medicine Adult Medicine; Visit Provider Family Medicine Adult Medicine | DX: D63.8 Anemia in other chronic diseases classified elsewhere (principal); E78.5 Hyperlipidemia, unspecified; I10 Essential (primary) hypertension; E87.6 Hypokalemia; E03.9 Hypothyroidism, unspecified; E66.9 Obesity, unspecified | CPT/HCPCS: 80053; 80061; 84443 ==

== ENCOUNTER → 2021-11-30 10:49 | Outpatient (BNVA) | payer MEDICAID, SELFPAY | PROVIDERS: PCP Family Medicine Adult Medicine; Visit Provider Specialist | DX: Z96.652 Presence of left artificial knee joint (principal); T84.84XA Pain due to internal orthopedic prosthetic devices, implants and grafts, initial encounter; Z96.659 Presence of unspecified artificial knee joint; M25.562 Pain in left knee | CPT/HCPCS: 73560; 99213 ==

== ENCOUNTER → 2022-06-21 09:05 | Outpatient (BNVA) | payer MEDICAID, SELFPAY | PROVIDERS: PCP Family Medicine Adult Medicine; Visit Provider Podiatrist Foot & Ankle Surgery | DX: M79.671 Pain in right foot (principal); M20.5X1 Other deformities of toe(s) (acquired), right foot; L60.3 Nail dystrophy | CPT/HCPCS: 73630; 99204 ==

== ENCOUNTER → 2022-08-23 09:02 | Outpatient (BNVA) | payer MEDICAID, SELFPAY | PROVIDERS: PCP Family Medicine Adult Medicine; Visit Provider Podiatrist Foot & Ankle Surgery | DX: M20.5X1 Other deformities of toe(s) (acquired), right foot (principal); L60.3 Nail dystrophy | CPT/HCPCS: 99213 ==

== ENCOUNTER → 2022-08-30 08:00 | Outpatient (BNVA) | payer MEDICAID, SELFPAY | PROVIDERS: PCP Family Medicine Adult Medicine; Visit Provider Family Medicine Adult Medicine | DX: E03.9 Hypothyroidism, unspecified (principal); E78.5 Hyperlipidemia, unspecified; I12.9 Hypertensive chronic kidney disease with stage 1 through stage 4 chronic kidney disease, or unspecified chronic kidney disease; N18.2 Chronic kidney disease, stage 2 (mild) | CPT/HCPCS: 80053; 80061; 84443; 85025 ==

== ENCOUNTER 2022-09-08 07:50 | Emergency (ER) | payer MEDICAID, SELFPAY ==
--- NOTE | 2022-09-08 07:55 | XR_ITS ---
WS: [id number] Exam: XR foot RT min 3V* [id number] Date/Time of Exam: 09/08/2022 8:31 AM Reason For Exam: pain/trauma Comparison 06/21/2022. No acute fracture or dislocation. Signs of previous bunion repair. No soft tissue foreign bodies are seen. Degenerative change at the first MP joint. Large plantar heel spur. XR/XR foot RT min 3V* [id number] IMPRESSION: 1. No fracture or dislocation identified.
[2022-09-08 08:03] VITALS: BP 155/94; PULSE 74; TEMP 36.7; O2SAT 99
--- NOTE | 2022-09-08 08:48 | ED_ITS ---
HPI - Extremity Problem General: Chief complaint: Extremity Injury, Lower Stated complaint: right foot injury Time Seen by Provider: 09/08/22 07:51 Source: patient Mode of arrival: ambulatory History of Present Illness: Next he 2-year-old female presents emergency room she said 5 days ago her dog stepped on her right foot and twisted it Spall as he stepped on her foot. She has been able to bear weight on it partially by walkin g on the heel. No fever sweats chills she has some swelling and discomfort to the foot. MD Complaint: extremity pain and extremity swelling Onset (ago): day(s) (5) Pain Consistency: constant Location: right and lower extremity Quality: aching Associated symptoms: Deny arthralgias, chest pain, fever(s), myalgias, rash or short of breath Review of Systems Const: Denies: fever(s) Card: Denies: chest pain Resp: Denies: dyspnea, productive cough or non-productive cough GI: Denies: abdominal pain, nausea or vomiting Skin/Breast: Denies: rash PFSH ED PFSH: Medical History Allergic rhinitis due to allergen Anemia in chronic illness Anxiety Bilateral lower extremity edema Bulging eyes CKD (chronic kidney disease), stage II GERD (gastroesophageal reflux disease) History of supraventricular tachycardia Ablation done 2001 HTN (hypertension) Hx of colonic polyps Hyperlipidemia Hypokalemia Hypothyroidism (acquired) Irritable bowel syndrome with diarrhea Obesity (BMI 30-39.9) Osteoarthritis involving multiple joints on both sides of body Overgrown nail PVD (peripheral vascular disease) Surgical History History of colonoscopy with polypectomy normal, previous 4-5 years had polypectomy History of hysterectomy History of left knee replacement Hx of foot surgery Hx of melanoma excision Hx of tonsillectomy Family History Mother Cancer Stroke Dementia Hypertension Grandfather Diabetes Father Cancer Social History Smoking and tobacco status: current some day smoker Alcohol intake: current Alcohol intake frequency: few times a week Marital status: Number of children: 2 Number of grandchildren: 6 Current occupational status: unemployed and disabled Female Reproductive History: Spontaneous abortions: No Physical Exam Const: COMMON NORMALS: no acute distress GENERAL APPEARANCE: cooperative and comfortable ORIENTATION/CONSCIOUSNESS: Yes awake, Yes oriented to person, Yes oriented to place and Yes oriented to time Extremity: COMMON NORMALS: normal to inspection, capillary refill normal and no calf tenderness OTHER: Moderate swelling of the dorsum of the foot dorsalis pedis posterior tibialis pulses palpable normal capillary refill no induration no drainage no skin breakdown no rash. Dorsum plantar flex strength 5 5 Neuro: SENSORIUM/ORIENTATION: Yes oriented to person, Yes oriented to place and Yes oriented to time Skin: COMMON NORMALS: no rashes or lesions noted GENERAL SKIN EXAM: no rashes or lesions noted Course Vital Signs: Vital signs: Vital Signs Temperature 98.1 F 09/08/22 08:03 Pulse Rate 74 09/08/22 08:03 Blood Pressure 155/94 09/08/22 08:03 Pulse Oximetry 99 09/08/22 08:03 MDM - Extremity (Nontraumatic) Medical Decision Making No acute fracture on the x-ray. Moderate soft tissue swelling noticed at bedside exam. No sign of infection at this time. Can use diclofenac as needed. Follow-up with primary care if not improving Medical Records I reviewed the patient's medical records. Lab Data I reviewed the patient's lab results. Radiology Impressions Foot X-Ray 09/08/22 07:55 IMPRESSION: 1. No fracture or dislocation identified. Discharge Plan Discharge Patient Disposition: Home Clinical Impression: Foot pain, right Condition: Stable Prescriptions: New diclofenac sodium 75 mg tablet,delayed release (DR/EC) 75 mg PO Q12H PRN (Reason: pain) Qty: 20 0RF No Action aspirin [Adult Aspirin Regimen] 81 mg tablet,delayed release (DR/EC) 81 mg PO DAILY amlodipine 5 mg tablet 5 mg PO DAILY Qty: 90 3RF atorvastatin 40 mg tablet See Rx Instructions .ROUTE .COMPLEX Qty: 90 1RF Dose Instruction: TAKE 1 TABLET BY MOUTH DAILY Rx Instructions: TAKE 1 TABLET BY MOUTH DAILY fluoxetine 40 mg capsule See Rx Instructions .ROUTE .COMPLEX Qty: 90 1RF Dose Instruction: TAKE 1 CAPSULE BY MOUTH DAILY FOR ANXIETY Rx Instructions: TAKE 1 CAPSULE BY MOUTH DAILY FOR ANXIETY potassium chloride 20 mEq tablet extended release 40 meq PO DAILY Qty: 180 3RF ketotifen fumarate [Allergy Eye (ketotifen)] 0.025 % (0.035 %) drops 1 drp ophthalmic (eye) Q8H Qty: 5 3RF Rx Instructions: do not exceed 2 doses in a 24 hour period clonidine HCl 0.2 mg tablet 0.2 mg PO BID Qty: 180 3RF metoprolol succinate 100 mg tablet extended release 24 hr 200 mg PO DAILY 90 Days Qty: 180 1RF furosemide 20 mg tablet 20 mg PO BID Qty: 180 1RF omeprazole 20 mg capsule,delayed release(DR/EC) 20 mg PO BID Qty: 180 3RF losartan 100 mg tablet 100 mg PO DAILY Qty: 90 3RF loratadine 10 mg tablet See Rx Instructions .ROUTE .COMPLEX Qty: 30 0RF Dose Instruction: TAKE 1 TABLET BY MOUTH DAILY FOR ALLERGIES Rx Instructions: TAKE 1 TABLET BY MOUTH DAILY FOR ALLERGIES levothyroxine 50 mcg tablet 50 mcg PO DAILY Qty: 30 11RF colestipol 1 gram tablet 2 g PO QID Qty: 240 5RF calcium polycarbophil [FiberCon] 625 mg tablet 1,250 mg PO BID Qty: 120 11RF Discharge Orders: Discharge ED (Routine); Ordered 09/08/22 Ordered By: Chepe Rea Referrals: Thomas Gama MD [Primary Care Provider] - Discharge Diet: Usual diet Discharge Activity: Resume usual activity Patient Instructions: Opioid Safety, Pain Management Activity Restrictions/Additional Instructions: You are seen today for right foot pain there is moderate swelling in your foot x-ray did not show any acute fracture there is no sign of infection at this time. The swelling is more generalized does not associated with the particular joint. Recommend elevation ice you can use anti-inflammatory that was prescribed diclofenac 1 every 12 hours as needed if symptoms worsen do not i mprove follow-up with your doctor. Try to elevate and ice is much as possible for the next 2 to 3 days. Coding Level of Care Code ED Railroad Purchasing Agent for Diana Burden
[2022-09-08 09:06] VITALS: BP 148/72; PULSE 84; RESP 18; O2SAT 98
== END 2022-09-08 09:06 | disposition home or self-care (01) ==
PROVIDERS: Emergency Provider Family Medicine; PCP Family Medicine Adult Medicine
DX: M79.671 Pain in right foot (principal); Z79.82 Long term (current) use of aspirin; F17.210 Nicotine dependence, cigarettes, uncomplicated; I12.9 Hypertensive chronic kidney disease with stage 1 through stage 4 chronic kidney disease, or unspecified chronic kidney disease; N18.2 Chronic kidney disease, stage 2 (mild); E78.5 Hyperlipidemia, unspecified
CPT/HCPCS: 73630; 99283

== ENCOUNTER → 2022-09-14 08:18 | Outpatient (BNVA) | payer MEDICAID, SELFPAY | PROVIDERS: PCP Family Medicine Adult Medicine; Visit Provider Podiatrist Foot & Ankle Surgery | DX: L60.3 Nail dystrophy (principal); L60.8 Other nail disorders | CPT/HCPCS: 11750; A6219; A6446 ==

== ENCOUNTER → 2022-10-05 10:34 | Outpatient (BNVA) | payer MEDICAID, SELFPAY | PROVIDERS: PCP Family Medicine Adult Medicine; Visit Provider Podiatrist Foot & Ankle Surgery | DX: L60.8 Other nail disorders (principal) | CPT/HCPCS: 99213 ==

== ENCOUNTER 2022-12-10 07:22 | Inpatient (IN) | payer MEDICARE, MEDICAID, SELFPAY ==
[2022-12-10] VITALS (8 sets, daily range): BP systolic 105–136; BP diastolic 69–89; PULSE 61–80; RESP 16–19; TEMP 36.1–36.9; O2SAT 95–97; BMI 36.3
--- NOTE | 2022-12-10 07:35 | ED_ITS ---
HPI - General Adult General: Chief complaint: Recheck/Abnormal Lab/Rx Stated complaint: cramping in hands,not drinking Time Seen by Provider: 12/10/22 07:24 Source: patient Mode of arrival: ambulatory Limitations: no limitations History of Present Illness: Patient is a 62-year-old female presents to ED today with complaint of generalized muscle cramps and weakness that she believes is secondary to hy pocalcemia. She states she has had this before and symptoms feel similar. She reports symptoms over the past 3 days. She states over the past several weeks she has been having diarrhea-this has slowly improved states over the past several days she has had a lack of appetite and has not been eating or drinking much. She denies any abdominal pain. She has not had any episodes of emesis. Patient does not complain of any chest pain, shortness of breath, difficulty breathing, or palpitations. PMH significant for osteoarthritis, hypothyroidism, normal colonoscopy 06/23/2021, hypokalemia, hyperlipidemia, chronic kidney disease stage II, hypertension, anxiety, anemia of chronic disease, obesity. Onset (ago): day(s) Severity: severe Quality: other (cramping) Pain Consistency: intermittent Associated symptoms: Reports vomiting; Deny chest pain, confusion, dyspnea, headache(s), malaise, nausea, rash, palpitations or syncope Treatments prior to arrival: none Review of Systems Const: Denies: fever(s), chills, body aches, fatigue or malaise Eyes: Denies: change in vision or blurry vision Card: Denies: chest pain, palpitations, irregular heart rhythm, edema, swelling of feet/ankles, lightheadedness, syncope, pre-syncope, dyspnea on exertion, orthopnea, leg pain with exertion or acrocyanosis Resp: Denies: dyspnea, productive cough or pain on inspiration GI: Reports: vomiting and other (decreased appetite); Denies: abdominal pain, nausea, heartburn or diarrhea : Denies: dysuria Musc: Reports: muscle cramps; Denies: neck pain, back pain, extremity pain, extremity swelling, joint pain, joint swelling, joint redness, joint warmth, joint stiffness or limited range of motion Skin/Breast: Denies: rash Neuro: Reports: difficulty walking (secondary to cramps); Denies: headache(s), numbness in extremities, weakness in extremities, sensory changes, dizziness or confusion PFSH ED PFSH: Medical History Allergic rhinitis due to allergen Anemia in chronic illness Anxiety Bilateral lower extremity edema Bulging eyes CKD (chronic kidney disease), stage II GERD (gastroesophageal reflux disease) History of supraventricular tachycardia Ablation done 2001 HTN (hypertension) Hx of colonic polyps Hyperlipidemia Hypokalemia Hypothyroidism (acquired) Irritable bowel syndrome with diarrhea Obesity (BMI 30-39.9) Osteoarthritis involving multiple joints on both sides of body Overgrown nail PVD (peripheral vascular disease) Surgical History History of colonoscopy with polypectomy normal, previous 4-5 years had polypectomy History of hysterectomy History of left knee replacement Hx of foot surgery Hx of melanoma excision Hx of tonsillectomy Family History Mother Cancer Stroke Dementia Hypertension Grandfather Diabetes Father Cancer Social History Smoking and tobacco status: current some day smoker Alcohol intake: current Alcohol intake frequency: few times a week Substance/Drug Use: never Marital status: Number of children: 2 Number of grandchildren: 6 Current occupational status: unemployed and disabled Female Reproductive History: Spontaneous abortions: No Physical Exam Const: COMMON NORMALS: no acute distress, patient oriented x3, no limitations, alert and well nourished GENERAL APPEARANCE: cooperative NUTRITIONAL APPEARANCE: obese ORIENTATION/CONSCIOUSNESS: Yes awake, Yes oriented to person, Yes oriented to place and Yes oriented to time HENMT: COMMON NORMALS: normocephalic and atraumatic HEAD & SCALP: normal to inspection, normocephalic and atraumatic FACE & SINUS: normal facial exam Neck/C-Spine: COMMON NORMALS: full ROM, no lymphadenopathy, supple, no meningeal signs and Thyroid normal THYROID: Thyroid normal Resp: COMMON NORMALS: normal respiratory effort and clear to auscultation bilaterally AUSCULTATION: clear to auscultation bilaterally Cardio: COMMON NORMALS: regular rate and regular rhythm RATE: regular rate RHYTHM: regular rhythm GI: COMMON NORMALS: Normal to inspection, nondistended, normoactive bowel sounds present, Soft to palpation, non-tender, No hepatosplenomegaly present and no masses PALPATION: Yes Soft to palpation and Yes No hepatosplenomegaly present Back/Pelvis: COMMON NORMALS: thoracic and lumbar spine normal to inspection, no thoracic nor lumbar tenderness and thoraco-lumbar ROM normal Extremity: NARRATIVE EXTREMITY EXAM: carpal/pedal spasms; positive Trousseau's sign GENERAL: Yes normal exam except as noted Neuro: CECILIO COMA SCALE: document GCS findings [place] coma scale eye opening: Spontaneous [place] coma scale verbal response: Orientated Cecilio coma scale motor response: Obey commands Cecilio coma scale total score: 15 COMMON NORMALS: patient oriented x3, CN's II-XII intact bilaterally, moves all extremities, no focal motor deficits and no sensory deficits noted SENSORIUM/ORIENTATION: Yes alert, Yes oriented to person, Yes oriented to place and Yes oriented to time MENINGEAL SIGNS: Yes no meningeal signs Skin: COMMON NORMALS: no rashes or lesions noted GENERAL SKIN EXAM: no rashes or lesions noted Course Consultations: Consultation #1: Dr. Pena-will admit Vital Signs: Vital signs: Vital Signs Temperature 98.5 F 12/10/22 07:28 Pulse Rate 80 12/10/22 07:28 Respiratory Rate 16 12/10/22 07:28 Blood Pressure 129/83 12/10/22 12:03 Pulse Oximetry 97 12/10/22 07:28 Oxygen Delivery Me thod Room Air 12/10/22 07:28 MDM - General Adult Medical Decision Making Patient was witnessed to have carpal and pedal spasms upon presentation to the ED. Blood work today does show hypocalcemia at 6.7 (correct calcium was roughly 7.4). She also has hypomagnesemia at 1.0. She was given IV replacement of both of these. Patient continues to complain of diffuse weakness and pain. Spasms have seemed to resolve. Patient does not feel like she can go home therefore we will admit her for further evaluation and treatment. She has a UTI on UA. Holding off on IV antibiotics for now per Dr. Pena. Dr. Odell aware of patient and will place admit orders. Lab Data 12/10/22 07:45 12/10/22 11:38 Laboratory Results WBC 9.3 10^3/uL (4.0-10.0) 12/10/22 07:45 RBC 3.88 10^6/uL (4.1-5.3) L 12/10/22 07:45 Hgb 11.9 g/dL (11.5-15.3) 12/10/22 07:45 Hct 36.8 % (37.0-47.0) L 12/10/22 07:45 MCV 94.8 fl (81-99) 12/10/22 07:45 MCH 30.7 pg (28.0-34.0) 12/10/22 07:45 MCHC 32.3 g/dL (30.0-36.0) 12/10/22 07:45 RDW 16.5 % (12.1-15.1) H 12/10/22 07:45 Plt Count 270 10^3/cmm (130-400) 12/10/22 07:45 MPV 10.9 fL (7.4-10.4) H 12/10/22 07:45 Neut % (Auto) 82.8 % 12/10/22 07:45 Lymph % (Auto) 9.5 % 12/10/22 07:45 [place] % (Auto) 6.8 % 12/10/22 07:45 Eos % (Auto) 0.2 % 12/10/22 07:45 Baso % (Auto) 0.4 % 12/10/22 07:45 Neut # (Auto) 7.71 10^3/uL (1.8-7.7) H 12/10/22 07:45 Lymph # (Auto) 0.9 10^3/uL (0.8-4.8) 12/10/22 07:45 [place] # (Auto) 0.6 10^3/uL (0.2-0.9) 12/10/22 07:45 Eos # (Auto) 0.0 10^3/uL (0.0-0.8) 12/10/22 07:45 Baso # (Auto) 0.0 10^3/uL (0.0-0.1) 12/10/22 07:45 Nucleated RBC % (auto) 0 % 12/10/22 07:45 Nucleated RBCs # 0.0 /100WBC 12/10/22 07:45 Sodium 137 mmol/L (136-145) 12/10/22 11:38 Potassium 3.4 mmol/L (3.5-5.1) L 12/10/22 11:38 Chloride 102 mmol/L (98-107) 12/10/22 11:38 Carbon Dioxide 19 mmol/L (22-29) L 12/10/22 11:38 Anion Gap 19.4 (5-19) H 12/10/22 11:38 BUN 21 mg/dL (8-23) 12/10/22 11:38 Creatinine 1.9 mg/dL (0.5-0.9) H 12/10/22 11:38 GFR Calculation 26.8 mL/min (90-130) L 12/10/22 11:38 Glucose 105 mg/dL (65-115) 12/10/22 11:38 Calculated Osmolality 287 mOsm/kg (285-295) 12/10/22 11:38 Calcium 7.1 mg/dL (8.5-10.5) L 12/10/22 11:38 Magnesium 1.0 mg/dL (1.7-2.3) L 12/10/22 08:50 Total Bilirubin 1.5 mg/dL (0.15-1.2) H 12/10/22 08:50 AST 18 U/L (0-32) 12/10/22 08:50 ALT 9 U/L (0-33) 12/10/22 08:50 Alkaline Phosphatase 125 U/L (35-105) H 12/10/22 08:50 Total Protein 6.5 g/dL (6.6-8.7) L 12/10/22 08:50 Albumin 3.1 g/dL (3.5-5.2) L 12/10/22 08:50 Globulin 3.4 g/dL (1.3-4.6) 12/10/22 08:50 Lipase 18 U/L (13-60) 12/10/22 08:50 Urine Color Trisha (Yellow) 12/10/22 10:40 Urine Appearance Cloudy (CLEAR) A 12/10/22 10:40 Urine pH 5 (5-7) 12/10/22 10:40 Ur Specific [place] 1.015 (1.005-1.030) 12/10/22 10:40 Urine Protein Trace (Negative) 12/10/22 10:40 Urine Glucose (UA) Norm (Normal) 12/10/22 10:40 Urine Ketones Negative (Negative) 12/10/22 10:40 Urine Blood 3+ (Negative) H 12/10/22 10:40 Urine Nitrate Negative (Negative) 12/10/22 10:40 Urine Bilirubin 1+ (Negative) H 12/10/22 10:40 Urine Urobilinogen Norm mg/dL (Negative) 12/10/22 10:40 Ur Leukocyte Esterase 2+ (Negative) H 12/10/22 10:40 Urine RBC 5-10 /hpf (0-2) H 12/10/22 10:40 Urine WBC >100 /hpf (0-5) H 12/10/22 10:40 Ur Squamous Epith Cells 5-10 /hpf (0-5) H 12/10/22 10:40 Amorphous Sediment Not Reportable 12/10/22 10:40 Urine Bacteria 1+ /hpf (NONE) H 12/10/22 10:40 Discharge Plan Discharge Patient Disposition: Admitted As Inpatient Clinical Impression: Hypocalcemia, Hypomagnesemia UTI (urinary tract infection) Qualifiers: Urinary tract infection type: acute cystitis Hematuria presence: with hematuria Qualified Code(s): N30.01 - Acute cystitis with hematuria Condition: Stable Coding Level of Care Code ED Supervisor Speech for Diana Burden
--- NOTE | 2022-12-10 07:35 | ECG_ITS ---
[facility] Test Date: 2022-12-10 Pat Name: Melanie Ryan Department: Room: Gender: Female Machine Room Operator: : 1960 Requested By: Alisa Tran Order Number: [id number] Jesus MD: Shalonda Herrera M.D. Measurements Intervals [place] Rate: 80 P: 6 IN: 150 QRS: 3 QRSD: 90 T: -10 QT: 387 QTc: 446 Interpretive Statements SINUS RHYTHM NONSPECIFIC T-WAVE ABNORMALITY Compared to ECG 07/11/2021 15:19:00 No significant changes Electronically Signed On 12-11-2022 18:48:32 CDT by Shalonda Herrera M.D. [id number]
[2022-12-10 08:12] LABS: Basophils % 0.4 %; Eosinophils % 0.2 %; Hematocrit 36.8 % (37.0-47.0); Hemoglobin 11.9 g/dL (11.5-15.3); Lymphocytes # 0.9 10^3/uL (0.8-4.8); Lymphocytes % 9.5 %; Mean Corpuscular HGB Conc 32.3 g/dL (30.0-36.0); Mean Corpuscular Hemoglobin 30.7 pg (28.0-34.0); Mean Corpuscular Volume 94.8 fl (81-99); Mean Platelet Volume 10.9 fL (7.4-10.4); Monocytes # 0.6 10^3/uL (0.2-0.9); Monocytes % 6.8 %; Neutrophils # 7.71 10^3/uL (1.8-7.7); Neutrophils % 82.8 %; Nucleated Red Blood Cells % 0 %; Platelet Count 270 10^3/cmm (130-400); Red Blood Count 3.88 10^6/uL (4.1-5.3); Red Cell Distribution Width 16.5 % (12.1-15.1); White Blood Count 9.3 10^3/uL (4.0-10.0)
[2022-12-10 09:14] LABS: Alanine Aminotransferase 9 U/L (0-33); Albumin Level 3.1 g/dL (3.5-5.2); Alkaline Phosphatase 125 U/L (35-105); Anion Gap 20.6 (5-19); Aspartate Amino Transferase 18 U/L (0-32); Blood Urea Nitrogen 21 mg/dL (8-23); Calcium 6.7 mg/dL (8.5-10.5); Carbon Dioxide 21 mmol/L (22-29); Chloride 98 mmol/L (98-107); Globulin 3.4 g/dL (1.3-4.6); Glomerular Filtration Rate 25.2 mL/min (90-130); Glucose 108 mg/dL (65-115); Lipase 18 U/L (13-60); Osmolality Calculated 286 mOsm/kg (285-295); Potassium 3.6 mmol/L (3.5-5.1); Sodium 136 mmol/L (136-145); Total Bilirubin 1.5 mg/dL (0.15-1.2); Total Protein 6.5 g/dL (6.6-8.7)
[2022-12-10] MEDS: calcium gluconate 0.9% NaCL 1 GM/50 ML PREMIX IV ×3 (09:30→16:07)
--- NOTE | 2022-12-10 10:46 | PC.PHAR ---
pt states she takes care of her own medications-pt states she stop taking her colestipol 1mg taking 2g qid about a month ago-pt states she is only taking the medications entered pt states she hasnt taken amlodipine 5mg daily last filled 01/11/22 90d/s or clonidine 0.2mg bid last filled 02/11/22 90d/s for a very long time-
[2022-12-10] MEDS: sodium chloride 0.9% 1,000 ML 999 ML IV (10:49)
[2022-12-10 11:04] LABS: Add Urine Microscopic? YES; Bilirubin Urine 1+ (Negative); Blood Urine 3+ (Negative); Glucose Urine UA Norm (Normal); Ketones Urine Negative (Negative); Leukocyte Esterase Urine 2+ (Negative); Nitrate Urine Negative (Negative); Protein Urine Trace (Negative); Specific Gravity, Urine 1.015 (1.005-1.030); Urine Appearance Cloudy (CLEAR); Urine Color Amber (Yellow); Urobilinogen Urine Norm (Negative); pH Urine 5 (5-7)
[2022-12-10 11:05] LABS: Add Urine Culture? Yes; Bacteria Urine 1+ /hpf; WBC Urine >100 /hpf (0-5)
[2022-12-10 12:15] LABS: Anion Gap 19.4 (5-19); Blood Urea Nitrogen 21 mg/dL (8-23); Calcium 7.1 mg/dL (8.5-10.5); Carbon Dioxide 19 mmol/L (22-29); Chloride 102 mmol/L (98-107); Glomerular Filtration Rate 26.8 mL/min (90-130); Glucose 105 mg/dL (65-115); Osmolality Calculated 287 mOsm/kg (285-295); Potassium 3.4 mmol/L (3.5-5.1); Sodium 137 mmol/L (136-145)
[2022-12-10 13:35] LABS: Creatine Phosphokinase 54 U/L (26-192)
[2022-12-10 16:05] LABS: Ionized Calcium 0.9 mmol/L (1.1-1.4)
[2022-12-10 16:27] LABS: Calcium 6.6 mg/dL (8.5-10.5)
[2022-12-10 16:33] LABS: 25 Hydroxy Vitamin D 16 ng/mL (30-100); Thyroid Stimulating Hormone 4.33 uIU/mL (0.27-4.20)
[2022-12-10 16:49] LABS: Cortisol Random 36.06 ug/dL (2.47-19.5)
--- NOTE | 2022-12-10 17:12 | P.HP_ITS ---
Providers/Chief Complaint Admitting Physician: Tiffanie Pena MD Primary Care Provider: Thomas Gama MD Chief Complaint: cramping in hands ,not drinking History of Present Illness Melanie Ryan is a 62 year old female with a PMH irritable bowel disease, remote past h/o C diff , preseting today with generalized weakness, and cramping involving both her upper and lower extremities. Today she noted spasmodic flexion in both her hands and presented to the ER where she was noted to have tetany. W/up significant for hypocalcemia and hypomagnesemia for which she has received iv mag supplementation thus far. She has chronic diarrhea, particularly worsened currently since last 10-15 days. no recent abx use. Loeramide has not helped. No fever. Ten[place]+. no vomiting. no new medications added recently. Has similar episode few years ago when she was in [place]- no cause was ascertained at that time Review of Systems General: Reports: 10 or more systems reviewed and unremarkable except in HPI and below Const: Denies: fever(s), chills or body aches Eyes: Denies: change in vision, blurry vision or photophobia ENMT: Reports: hoarseness; Denies: throat pain, enlarged tonsils, odynophagia or nasal congestion Card: Denies: chest pain, palpitations, irregular heart rhythm, edema, s welling of feet/ankles, lightheadedness, pre-syncope, dyspnea on exertion or orthopnea Resp: Denies: dyspnea, productive cough, non-productive cough, wheezing, stridor, pain on inspiration, change in phlegm color, hemoptysis or chest congestion GI: Denies: abdominal pain, nausea, vomiting, hematemesis, coffee ground emesis, dysphagia, heartburn, diarrhea, constipation, GI cramping, change in stool character, hematochezia or melena : Denies: flank pain, difficulty voiding, dysuria, urinary frequency, uri nary urgency, urinary hesitancy or hematuria Musc: Denies: neck pain, back pain, extremity pain, joint swelling, joint warmth or deformity Neuro: Denies: headache(s), numbness in extremities, weakness in extremities, sensory changes, difficulty walking, frequent falls, dizziness, vertigo, behavioral changes, Slurred speech present or seizure-like activity Psych: Denies: anxiety, depression, suicidal ideation or homicidal ideation Endo: Denies: polyuria, polydipsia, tired all the time, cold intolerance or hot flashes Reji/Lymph: Denies: easy bruising or easy bleeding Medications/Allergies Home Medications Medication Instructions Recorded Confirmed Last Taken Type omeprazole 20 mg capsule,delayed 20 mg PO BID acid reflux #180 caps 04/14/22 12/10/22 Unknown Rx release losartan 100 mg tablet 100 mg PO DAILY Blood Pressure #90 04/22/22 12/10/22 Unknown Rx tabs levothyroxine 50 mcg tablet 50 mcg PO DAILY low thyroid #30 08/30/22 12/10/22 Unknown Rx tabs metoprolol succinate 100 mg 200 mg PO DAILY blood pressure 90 11/28/22 12/10/22 Unknown Rx tablet,extended release 24 hr days #180 tabs atorvastatin 40 mg tablet 40 mg PO QAM 12/10/22 12/10/22 Unknown History fluoxetine 40 mg capsule 40 mg PO DAILY 12/10/22 12/10/22 Unknown History furosemide 20 mg tablet 20 mg PO QAM edema 12/10/22 12/10/22 Unknown History ketotifen fumarate 0.025 % (0.035 1 drp ophthalmic (eye) BID PRN 12/10/22 12/10/22 Unknown History %) eye drops (Allergy Eye allergy eyes (ketotifen)) potassium chloride 20 mEq 20 meq PO DAILY Low potassium 12/10/22 12/10/22 Unknown History tablet,extended release Allergies Allergy/AdvReac Type Severity Reaction Status Date / Time amitriptyline Allergy Mild ALGY-Hives Verified 10/05/22 10:43 amoxicillin AdvReac Intermediate ADR-Diarrhe Verified 10/05/22 10:43 a HCTZ Allergy Severe SOB and Uncoded 10/05/22 10:43 Chest pain PFSH Acute PFSH: Medical History Allergic rhinitis due to allergen Anemia in chronic illness Anxiety Bilateral lower extremity edema Bulging eyes CKD (chronic kidney disease), stage II GERD (gastroesophageal reflux disease) History of supraventricular tachycardia Ablation done 2001 HTN (hypertension) Hx of colonic polyps Hyperlipidemia Hypokalemia Hypothyroidism (acquired) Irritable bowel syndrome with diarrhea Obesity (BMI 30-39.9) Osteoarthritis involving multiple joints on both sides of body Overgrown nail PVD (peripheral vascular disease) Surgical History History of colonoscopy with polypectomy normal, previous 4-5 years had polypectomy History of hysterectomy History of left knee replacement Hx of foot surgery Hx of melanoma excision Hx of tonsillectomy Family History Mother Cancer Stroke Dementia Hypertension Grandfather Diabetes Father Cancer Social History Smoking and tobacco status: current some day smoker Alcohol intake: current Alcohol intake frequency: few times a week Substance/Drug Use: never Marital status: Number of children: 2 Number of grandchildren: 6 Current occupational status: unemployed and disabled Female Reproductive History: Spontaneous abortions: No Vitals/I&O/Wt Last Vital Signs Temp 97.0 F L 12/10/22 16:22 Pulse 65 12/10/22 16:22 Resp 18 12/10/22 16:22 BP 133/89 12/10/22 16:22 Pulse Ox 97 12/10/22 16:22 O2 Del Method Room Air 12/10/22 16:22 12/10/22 12/10/22 12/10/22 06:59 14:59 22:59 Intake Total 1152 / 1152 Output Total 0 / 0 Balance 1152 / 1152 0 / 1152 Weight last 48 hrs Weight 96.162 kg Physical Exam Narrative: General: No acute distress, AO x3 HEENT: PERRLA, pupils bilaterally equal and reactive, pallors not present Chest: Normal vesicular breath sounds, no added sounds, equal good air entry bilaterally CVS: S1-S2 regular, no murmurs, no tachycardia, no gallops, no rubs Abdomen: Soft, nontender, no organomegaly, bowel sounds present Neuro: No focal deficits, no facial deformity, AO x3, power 5/5 in all limbs Data 12/10/22 07:45 12/10/22 21:04 A&P Assessment and plan (1) Hypocalcemia: (2) Hypomagnesemia: (3) UTI (urinary tract infection): Qualifiers: Hematuria presence: with hematuria Urinary tract infection type: acute cystitis Qualified Code(s): N30.01 - Acute cystitis with hematuria (4) Irritable bowel syndrome with diarrhea: Plan 62F with PMH IBS , chronic diarrhea, remote h/o C diff p/w tetany, foudn to have hypocalcemia and hypomagnesemia. Replete ca gluconate 1gm iv over 10 min , recheck in 6 hrs check inonized calcium Repleted 1g iv magnesium in ER, repeat in 6 hrs Check PTH level, TSH, cortisol , vit D level Suspect electrolyte depletion due to persisting diarrhea , reports 10-15 episodes per day colonoscopy unremarkable in 2021 check Cdiff PCR and enteric bacterial and parasite panel Prn loperamide if C diff negative telemetry monitoring MUNA on CKD with cr 1.9, IVF NS @ 75 cc/hr Attestations Medical Necessity Statement*: antcipate less than 2 midnight stay for ivf, electrolyte replacement Coding Level of Care Code Acute Code for Chg Fwd Diagnoses Hypocalcemia E83.51 Hypomagnesemia E83.42 UTI (urinary tract infection) N30.01 Hematuria presence: with hematuria Urinary tract infection type: acute cystitis Irritable bowel syndrome with diarrhea K58.0
[2022-12-10] MEDS: sodium chloride 0.9% 1,000 ML 75 ML IV (17:27)
[2022-12-10] MEDS: acetaminophen 325 mg Tablet 650 MG PO (18:01)
[2022-12-10 21:37] LABS: Calcium 6.9 mg/dL (8.5-10.5); Magnesium 1.2 mg/dL (1.7-2.3)
[2022-12-10 21:39] LABS: Alanine Aminotransferase 10 U/L (0-33); Albumin Level 2.6 g/dL (3.5-5.2); Alkaline Phosphatase 122 U/L (35-105); Anion Gap 17.6 (5-19); Aspartate Amino Transferase 23 U/L (0-32); Blood Urea Nitrogen 20 mg/dL (8-23); Calcium 6.9 mg/dL (8.5-10.5); Carbon Dioxide 21 mmol/L (22-29); Chloride 101 mmol/L (98-107); Globulin 2.9 g/dL (1.3-4.6); Glomerular Filtration Rate 35.2 mL/min (90-130); Glucose 103 mg/dL (65-115); Osmolality Calculated 285 mOsm/kg (285-295); Potassium 3.6 mmol/L (3.5-5.1); Sodium 136 mmol/L (136-145); Total Protein 5.5 g/dL (6.6-8.7)
[2022-12-11] VITALS (7 sets, daily range): BP systolic 132–158; BP diastolic 62–97; PULSE 60–78; RESP 16–19; TEMP 36.5–37.1; O2SAT 93–97
[2022-12-11] MEDS: magnesium sulfate premix 2 GM/50 ML PIGGYBACK IV (00:18)
[2022-12-11] MEDS: calcium gluconate 0.9% NaCL 1 GM/50 ML PREMIX IV ×3 (00:48→11:09)
[2022-12-11] MEDS: cefTRIAXone 1,000 MG in sodium chloride 0.9% (plus) 50 ML 100 MG IV (00:49)
[2022-12-11] MEDS: acetaminophen 325 mg Tablet 650 MG PO (03:42)
[2022-12-11 04:57] LABS: Basophils % 0.4 %; Eosinophils % 0.5 %; Hematocrit 30.7 % (37.0-47.0); Hemoglobin 9.8 g/dL (11.5-15.3); Lymphocytes # 0.8 10^3/uL (0.8-4.8); Lymphocytes % 13.9 %; Mean Corpuscular HGB Conc 31.9 g/dL (30.0-36.0); Mean Corpuscular Hemoglobin 30.2 pg (28.0-34.0); Mean Corpuscular Volume 94.8 fl (81-99); Mean Platelet Volume 10.7 fL (7.4-10.4); Monocytes # 0.4 10^3/uL (0.2-0.9); Monocytes % 7.6 %; Neutrophils # 4.28 10^3/uL (1.8-7.7); Neutrophils % 77.2 %; Nucleated Red Blood Cells % 0 %; Platelet Count 213 10^3/cmm (130-400); Red Blood Count 3.24 10^6/uL (4.1-5.3); Red Cell Distribution Width 16.4 % (12.1-15.1); White Blood Count 5.5 10^3/uL (4.0-10.0)
[2022-12-11 05:02] LABS: Ionized Calcium 0.9 mmol/L (1.1-1.4)
[2022-12-11 05:08] LABS: Alanine Aminotransferase 12 U/L (0-33); Albumin Level 2.3 g/dL (3.5-5.2); Alkaline Phosphatase 120 U/L (35-105); Anion Gap 17.3 (5-19); Aspartate Amino Transferase 26 U/L (0-32); Blood Urea Nitrogen 19 mg/dL (8-23); Calcium 6.9 mg/dL (8.5-10.5); Carbon Dioxide 20 mmol/L (22-29); Chloride 102 mmol/L (98-107); Glomerular Filtration Rate 41.5 mL/min (90-130); Glucose 92 mg/dL (65-115); Osmolality Calculated 284 mOsm/kg (285-295); Potassium 3.3 mmol/L (3.5-5.1); Sodium 136 mmol/L (136-145); Total Bilirubin 0.8 mg/dL (0.15-1.2); Total Protein 5.3 g/dL (6.6-8.7)
[2022-12-11 05:09] LABS: Magnesium 1.7 mg/dL (1.7-2.3)
[2022-12-11] MEDS: sodium chloride 0.9% 1,000 ML 75 ML IV ×2 (06:03→20:54)
[2022-12-11] MEDS: potassium chloride ER 20 mEq Tablet 40 MEQ PO (09:47)
[2022-12-11] MEDS: calcium carbonate 500 mg Chew Tablet PO ×4 (09:47→20:50)
--- NOTE | 2022-12-11 18:17 | P.PN_ITS ---
Subjective Subjective: Patient was seen and examined this morning, she was complaining of diarrhea, she has history of IBS-D and usually she does have diarrhea at baseline, but currently the diarrhea is significantly more than routine, cramping in both upper and lower extremity has improved, stool C. difficile positive, has been started on p.o. vancomycin, continue to be on IV fluids, has received IV calcium, magnesium, as well as p.o. potassium this morning. Has also been started on p.o. calcium. Medications: Medication Review Details: Generic Name Dose Route Start Last Admin Trade Name Freq PRN Reason Stop Dose Admin Acetaminophen 650 mg 12/10/22 15:35 12/11/22 03:42 Acetaminophen 32 5 Mg Tablet PO 650 mg Q6H PRN Administration Mild/Mod Pain Or Temp >/= 101 Calcium Carbonate 500 mg 12/11/22 09:45 12/11/22 16:51 Calcium Carbonat e 500 Mg Chew Tabl et PO 500 mg Q4H DANAE Administration Sodium Chloride 1,000 mls @ 75 ml s/hr 12/10/22 17:15 12/11/22 06:03 Sodium Chloride 0.9% IV 75 mls/hr .[id number] DANAE Administration Ceftriaxone Sodium 1,000 mg/ 50 mls @ 100 mls/ hr 12/10/22 23:45 12/11/22 13:13 Sodium Chloride IV Infused Q24H DANAE Infusion Protocol Vancomycin HCl 125 mg 12/11/22 13:00 12/11/22 16:52 Vancomycin 1,000 Mg Oral Bere (Btl) PO 125 mg QID DANAE Administration Vitals/I&O/Wt Last Vital Signs Temp 98.1 F 12/11/22 15:42 Pulse 70 12/11/22 15:42 Resp 16 12/11/22 15:42 BP 149/91 12/11/22 15:42 Pulse Ox 97 12/11/22 15:42 O2 Del Method Room Air 12/11/22 15:42 12/11/22 12/11/22 12/11/22 06:59 14:59 22:59 Intake Total 1065 / 2747 302 / 302 Output Total 400 / 400 Balance 1065 / 2447 -98 / -98 Weight last 48 hrs Weight 96.162 kg Physical Exam Const: COMMON NORMALS: patient oriented x3 HENMT: COMMON NORMALS: normocephalic and atraumatic HEAD & SCALP: normocephalic and atraumatic Resp: COMMON NORMALS: normal respiratory effort, No retractions, No use of accessory muscles and clear to auscultation bilaterally EFFORT & INSPECTION: Yes symmetric chest movement AUSCULTATION: clear to auscultation bilaterally Cardio: COMMON NORMALS: regular rate, regular rhythm, S1 normal heart sound present, S2 normal heart sound present, No gallops present (Cardio), No murmurs present (Cardio), No rub (Cardio) and Peripheral pulses 2+ throughout RATE: regular rate RHYTHM: regular rhythm HEART SOUNDS: S1 normal heart sound present and S2 normal heart sound present PERIPHERAL PULSES: Peripheral pulses 2+ throughout GI: COMMON NORMALS: Normal to inspection, nondistended, normoactive bowel alexis nds present, Soft to palpation, non-tender, No hepatosplenomegaly present and no masses AUSCULTATION: Yes normoactive bowel sounds PALPATION: Yes Soft to palpation and Yes No hepatosplenomegaly present RECTAL EXAM: deferred Extremity: COMMON NORMALS: no clubbing, cyanosis or edema and no pedal edema Neuro: COMMON NORMALS: patient oriented x3 Data 12/11/22 04:40 12/11/22 04:40 Micro: Microbiology 12/11/22 03:45 Enteric Pathogens (PCR) - Final Stool Routine Collection 12/11/22 03:45 C.difficile Toxin B Gene (PCR) - Final Stool Routine Collection 12/10/22 10:40 Urine Culture - Preliminary Urine,Clean Catch Gram Negative Rods A&P Assessment and plan (1) Hypocalcemia: (2) Hypomagnesemia: (3) UTI (urinary tract infection): Qualifiers: Hematuria presence: with hematuria Urinary tract infection type: acute cystitis Qualified Code(s): N30.01 - Acute cystitis with hematuria (4) Irritable bowel syndrome with diarrhea: (5) Clostridioides difficile diarrhea: Currently on p.o. vancomycin 125 4 times daily We will complete 10 days course of p.o. vancomycin. (6) Acute kidney injury superimposed on CKD: (7) Diarrhea: Plan 62F with PMH IBS , chronic diarrhea, remote h/o C diff p/w tetany, foudn to have hypocalcemia and hypomagnesemia. Calcium magnesium and potassium replacement has been undertaken. inonized calcium : 0.9 ,Tsh : 4.33, intact PTH 192, random cortisol 36 25 and 1, 25-hydroxy vitamin D level pending: For likely prerenal MUNA ON CKD in the setting of diarrhea she is currently on IV hydration serum creatinine is improving. UTI urine culture is growing gram-negative rods pending identification, currently on ceftriaxone Diarrhea: Related to C. difficile infection: Stool enteric PCR: Negative, currently on p.o. Vanco Attestations Medical Necessity Statement*: Needs to be in hospital for C. difficile diarrhea, need for IV fluids, also need for electrolyte replacement. Coding Level of Care Code Acute Code for Chg Fwd Diagnoses Hypocalcemia E83.51 Hypomagnesemia E83.42 UTI (urinary tract infection) N30.01 Hematuria presence: with hematuria Urinary tract infection type: acute cystitis Irritable bowel syndrome with diarrhea K58.0 Clostridioides difficile diarrhea A04.72 Acute kidney injury superimposed on CKD N17.9; N18.9 Diarrhea R19.7
[2022-12-12] VITALS (9 sets, daily range): BP systolic 124–160; BP diastolic 75–91; PULSE 63–98; RESP 16–19; TEMP 36.2–36.9; O2SAT 94–98
[2022-12-12] MEDS: cefTRIAXone 1,000 MG in sodium chloride 0.9% (plus) 50 ML 100 MG IV ×2 (00:35→23:51)
[2022-12-12] MEDS: calcium carbonate 500 mg Chew Tablet PO ×6 (00:45→21:01)
[2022-12-12 05:07] LABS: Ionized Calcium 1.1 mmol/L (1.1-1.4)
[2022-12-12 06:05] LABS: Alanine Aminotransferase 23 U/L (0-33); Albumin Level 2.5 g/dL (3.5-5.2); Alkaline Phosphatase 145 U/L (35-105); Anion Gap 12.3 (5-19); Aspartate Amino Transferase 45 U/L (0-32); Blood Urea Nitrogen 10 mg/dL (8-23); Calcium 7.4 mg/dL (8.5-10.5); Carbon Dioxide 23 mmol/L (22-29); Chloride 106 mmol/L (98-107); Globulin 2.4 g/dL (1.3-4.6); Glomerular Filtration Rate 72.7 mL/min (90-130); Glucose 82 mg/dL (65-115); Osmolality Calculated 284 mOsm/kg (285-295); Potassium 3.3 mmol/L (3.5-5.1); Sodium 138 mmol/L (136-145); Total Bilirubin 0.4 mg/dL (0.15-1.2); Total Protein 4.9 g/dL (6.6-8.7)
--- NOTE | 2022-12-12 09:15 | ECG_ITS ---
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 Measurements Intervals [place] Rate: 82 P: 35 [place]: 172 QRS: 18 QRSD: 89 T: 12 QT: 384 QTc: 451 Interpretive Statements SINUS RHYTHM ST DEVIATION AND MODERATE T-WAVE ABNORMALITY, CONSIDER LATERAL ISCHEMIA [-0.1+ mV T-WAVE IN I/aVL/V5/V6] Compared to ECG 12/10/2022 08:03:12 Possible ischemia now present T-wave abnormality still present Electronically Signed On 12-12-2022 14:15:26 CDT by Vimal Thomas M.D. [id number] f
--- NOTE | 2022-12-12 09:37 | PC.NURSE ---
During rounding, patient c/o feeling lousy and stated that her heart felt like it was pounding and she was having palpitations . Upon assessment of patient's tele, she was noted to be in an irregular rhythm with occasional PVCs and PACs with an occasional either absent or elongated p wave. D/t patient's c/o and change in status, contacted Dr. Cruz and he provided a verbal order for EKG stat. EKG obtained and showed NSR, however patient's HR continued to be elevated and she continues to have occasional PVCs and PACs on telemetry. Communicated with Dr. Cruz and he feels as though this is an isolated incident and patient will still d/c today. Strips posted in chart and Bebe Titus RN aware and at bedside with patient.
[2022-12-12] MEDS: lidocaine 1% 5 ML in potassium chloride premix 100 ML 26.25 ML IV (09:54)
[2022-12-12] MEDS: sodium chloride 0.9% 1,000 ML 75 ML IV ×2 (09:56→23:51)
[2022-12-12 10:01] LABS: Magnesium 1.5 mg/dL (1.7-2.3)
[2022-12-12] MEDS: metoprolol succinate ER (24 HR) 100 mg Tablet PO (10:10)
[2022-12-12] MEDS: calcium gluconate 0.9% NaCL 1 GM/50 ML PREMIX IV (10:10)
[2022-12-12] MEDS: amlodipine 5 mg Tablet PO (10:10)
--- NOTE | 2022-12-12 15:32 | P.PN_ITS ---
Subjective Subjective: Patient was seen and examined this morning, she was complaining of palpitation, EKG done at the time showed sinus rhythm, serum potassium and serum magnesium correction was undertaken, serum calcium replacement was also done. Home metoprolol succinate was restarted, blood pressure was also elevated received 1 dose of amlodipine 5 mg p.o. diarrhea has slightly improved. She was also complaining of some abdominal cramping. Medications: Medication Review Details: Generic Name Dose Route Start Last Admin Trade Name Freq PRN Reason Stop Dose Admin Acetaminophen 650 mg 12/10/22 15:35 12/11/22 03:42 Acetaminophen 32 5 Mg Tablet PO 650 mg Q6H PRN Administration Mild/Mod Pain Or Temp >/= 101 Calcium Carbonate 500 mg 12/11/22 09:45 12/12/22 14:22 Calcium Carbonat e 500 Mg Chew Tabl et PO 500 mg Q4H DANAE Administration Sodium Chloride 1,000 mls @ 75 ml s/hr 12/10/22 17:15 12/12/22 09:56 Sodium Chloride 0.9% IV 75 mls/hr .[id number] DANAE Administration Ceftriaxone Sodium 1,000 mg/ 50 mls @ 100 mls/ hr 12/10/22 23:45 12/12/22 02:31 Sodium Chloride IV Infused Q24H DANAE Infusion Protocol Metoprolol Succina te 100 mg 12/12/22 10:00 12/12/22 10:10 Metoprolol Succi luis Er (24 Hr) 10 0 Mg Tablet PO 100 mg DAILY DANAE Administration Vancomycin HCl 125 mg 12/11/22 13:00 12/12/22 14:22 Vancomycin 1,000 Mg Oral Bere (Btl) PO 125 mg QID DANAE Administration Vitals/I&O/Wt Last Vital Signs Temp 97.3 F L 12/12/22 12:00 Pulse 71 12/12/22 12:00 Resp 18 12/12/22 12:00 BP 149/87 12/12/22 12:00 Pulse Ox 98 12/12/22 12:00 O2 Del Method Room Air 12/12/22 12:00 12/12/22 12/12/22 12/12/22 06:59 14:59 22:59 Intake Total 50 / 552 1732.5 / 1732.5 Balance 50 / -448 1732.5 / 1732.5 Physical Exam Const: COMMON NORMALS: patient oriented x3 HENMT: COMMON NORMALS: normocephalic and atraumatic HEAD & SCALP: normocephalic and atraumatic Resp: COMMON NORMALS: normal respiratory effort, No retractions, No use of accessory muscles and clear to auscultation bilaterally EFFORT & INSPECTION: Yes symmetric chest movement AUSCULTATION: clear to auscultation bilaterally Cardio: COMMON NORMALS: regular rate, regular rhythm, S1 normal heart sound present, S2 normal heart sound present, No gallops present (Cardio), No murmurs present (Cardio), No rub (Cardio) and Peripheral pulses 2+ throughout RATE: regular rate RHYTHM: regular rhythm HEART SOUNDS: S1 normal heart sound present and S2 normal heart sound present PERIPHERAL PULSES: Peripheral pulses 2+ throughout GI: COMMON NORMALS: Normal to inspection, nondistended, normoactive bowel sounds present, Soft to palpation, non-tender, No hepatosplenomegaly present and no masses AUSCULTATION: Yes normoactive bowel sounds PALPATION: Yes Soft to palpation and Yes No hepatosplenomegaly present RECTAL EXAM: deferred Extremity: COMMON NORMALS: no clubbing, cyanosis or edema and no pedal edema Neuro: COMMON NORMALS: patient oriented x3 Data 12/11/22 04:40 12/12/22 05:03 Micro: Microbiology 12/10/22 10:40 Urine Culture - Final Urine,Clean Catch Kluyvera ascorbata A&P Assessment and plan (1) Hypocalcemia: (2) Hypomagnesemia: (3) UTI (urinary tract infection): Qualifiers: Hematuria presence: with hematuria Urinary tract infection type: acute cystitis Qualified Code(s): N30.01 - Acute cystitis with hematuria (4) Irritable bowel syndrome with diarrhea: (5) Clostridioides difficile diarrhea: Currently on p.o. vancomycin 125 4 times daily We will complete 10 days course of p.o. vancomycin. (6) Acute kidney injury superimposed on CKD: (7) Diarrhea: Plan 62F with PMH IBS , chronic diarrhea, remote h/o C diff p/w tetany, foudn to have hypocalcemia and hypomagnesemia. Calcium magnesium and potassium replacement has been undertaken. inonized calcium : 0.9 ,Tsh : 4.33, intact PTH 192, random cortisol 36 25 and 1, 25-hydroxy vitamin D level pending: For likely prerenal MUNA ON CKD in the setting of diarrhea she is currently on IV hydration serum creatinine is improving. UTI urine culture is growing gram-negative rods pending identification, cur rently on ceftriaxone Diarrhea: Related to C. difficile infection: Stool enteric PCR: Negative, curr ently on p.o. Vanco Attestations Medical Necessity Statement*: Needs to be in hospital for management C. difficile diarrhea. Coding Level of Care Code Acute Code for Chg Fwd Diagnoses Hypocalcemia E83.51 Hypomagnesemia E83.42 UTI (urinary tract infection) N30.01 Hematuria presence: with hematuria Urinary tract infection type: acute cystitis Irritable bowel syndrome with diarrhea K58.0 Clostridioides difficile diarrhea A04.72 Acute kidney injury superimposed on CKD N17.9; N18.9 Diarrhea R19.7
[2022-12-12] MEDS: magnesium sulfate premix 2 GM/50 ML PIGGYBACK IV (16:36)
[2022-12-13] VITALS (7 sets, daily range): BP systolic 134–164; BP diastolic 80–95; PULSE 61–73; RESP 14–16; TEMP 36.5; O2SAT 95–96
[2022-12-13] MEDS: calcium carbonate 500 mg Chew Tablet PO ×3 (01:10→08:57)
[2022-12-13 05:21] LABS: Basophils % 0.8 %; Eosinophils # 0.1 10^3/uL (0.0-0.8); Eosinophils % 2.1 %; Hematocrit 31.1 % (37.0-47.0); Hemoglobin 9.8 g/dL (11.5-15.3); Lymphocytes # 1.2 10^3/uL (0.8-4.8); Lymphocytes % 25.2 %; Mean Corpuscular HGB Conc 31.5 g/dL (30.0-36.0); Mean Corpuscular Hemoglobin 30.4 pg (28.0-34.0); Mean Corpuscular Volume 96.6 fl (81-99); Mean Platelet Volume 10.2 fL (7.4-10.4); Monocytes # 0.4 10^3/uL (0.2-0.9); Monocytes % 8.7 %; Neutrophils # 3.01 10^3/uL (1.8-7.7); Neutrophils % 62.6 %; Nucleated Red Blood Cells % 0 %; Platelet Count 234 10^3/cmm (130-400); Red Blood Count 3.22 10^6/uL (4.1-5.3); Red Cell Distribution Width 15.9 % (12.1-15.1); White Blood Count 4.8 10^3/uL (4.0-10.0)
[2022-12-13 05:46] LABS: Alanine Aminotransferase 27 U/L (0-33); Albumin Level 2.7 g/dL (3.5-5.2); Alkaline Phosphatase 138 U/L (35-105); Aspartate Amino Transferase 48 U/L (0-32); Blood Urea Nitrogen 6 mg/dL (8-23); Calcium 8.6 mg/dL (8.5-10.5); Carbon Dioxide 27 mmol/L (22-29); Chloride 106 mmol/L (98-107); Globulin 2.7 g/dL (1.3-4.6); Glomerular Filtration Rate 84.8 mL/min (90-130); Glucose 91 mg/dL (65-115); Magnesium 1.5 mg/dL (1.7-2.3); Osmolality Calculated 289 mOsm/kg (285-295); Sodium 141 mmol/L (136-145); Total Bilirubin 0.3 mg/dL (0.15-1.2); Total Protein 5.4 g/dL (6.6-8.7)
[2022-12-13 05:53] LABS: Anion Gap 12.4 (5-19); Potassium 4.4 mmol/L (3.5-5.1)
[2022-12-13] MEDS: acetaminophen 325 mg Tablet 650 MG PO (07:47)
[2022-12-13] MEDS: levothyroxine 50 mcg Tablet PO (08:57)
[2022-12-13] MEDS: fluoxetine 20 mg Capsule 40 MG PO (08:57)
[2022-12-13] MEDS: metoprolol succinate ER (24 HR) 100 mg Tablet PO (08:57)
--- NOTE | 2022-12-13 09:43 | PM.DCS ---
Discharge Providers Date of Admission: 12/11/22 18:32 Date of Discharge: December 13, 2022 Attending Provider at Admission: Tiffanie Pena MD Attending Provider at Discharge: Mane Cruz MD Primary Care Provider: Thomas Gama MD Diagnoses at Discharge Discharge Diagnosis (1) Hypocalcemia: Status: Inactive (2) Hypomagnesemia: Status: Inactive (3) UTI (urinary tract infection): Status: Inactive Qualifiers: Hematuria presence: with hematuria Urinary tract infection type: acute cystitis Qualified Code(s): N30.01 - Acute cystitis with hematuria (4) Irritable bowel syndrome with diarrhea: Status: Inactive (5) Clostridioides difficile diarrhea: Status: Inactive (6) Acute kidney injury superimposed on CKD: Status: Inactive (7) Diarrhea: Status: Inactive Reason for Visit Reason for Visit: cramping in hands ,not drinking Hospital Course Hospital Course 62F with PMH IBS , chronic diarrhea, remote h/o C diff came in with chief complaint of tetany, as well as worsening diarrhea from the baseline, during the hospital stay she was managed for, C. difficile diarrhea, vitamin D deficiency, hypocalcemia and hypomagnesemia, pre renal MUNA,Tsh : 4.33, intact PTH 192, random cortisol 36 , 25 hydroxy vitamin D level was:16, she kept on aggressive electrolyte replacement, both IV and p.o. calcium replacement was done, magnesium replacement was undertaken, She was kept on p.o. vancomycin, she was also started on Oral vitamin D3 5000 IU/day, she was kept on IV hydration, she responded well to above medical management, she was discharged on oral vitamin D, oral calcium, oral magnesium tablets, has been asked to complete 10-day course of p.o. vancomycin 125 4 times daily, she has also been asked to Follow with repeat CMP, magnesium and phosphorus, in a week time with her primary care physician. She will need a repeat 25-hydroxy vitamin D level in a month's time. During the hospital stay she was also managed for UTI, urine culture grew: kluyvera ascorbata, she was on ceftriaxone during hospital stay was discharged on levofloxacin for additional 4 days.She responded well to above medical management and was discharged in stable condition to home. Physical Exam Const: COMMON NORMALS: patient oriented x3 HENMT: COMMON NORMALS: normocephalic and atraumatic HEAD & SCALP: normocephalic and atraumatic Resp: COMMON NORMALS: normal respiratory effort, No retractions, No use of accessory muscles and clear to auscultation bilaterally EFFORT & INSPECTION: Yes symmetric chest movement AUSCULTATION: clear to auscultation bilaterally Cardio: COMMON NORMALS: regular rate, regular rhythm, S1 normal heart sound present, S2 normal heart sound present, No gallops present (Cardio), No murmurs present (Cardio), No rub (Cardio) and Peripheral pulses 2+ throughout RATE: regular rate RHYTHM: regular rhythm HEART SOUNDS: S1 normal heart sound present and S2 normal heart sound present PERIPHERAL PULSES: Peripheral pulses 2+ throughout GI: COMMON NORMALS: Normal to inspection, nondistended, normoactive bowel sounds present, Soft to palpation, non-tender, No hepatosplenomegaly present and no masses AUSCULTATION: Yes normoactive bowel sounds PALPATION: Yes Soft to palpation and Yes No hepatosplenomegaly present RECTAL EXAM: deferred Extremity: COMMON NORMALS: no clubbing, cyanosis or edema and no pedal edema Neuro: COMMON NORMALS: patient oriented x3 Discharge Data Studies Completed and Pending Pending at discharge Category Date Time Status CBC Auto Diff [Complete Blood Count w/Auto] AM LABS Lab 12/14/22 04:00 Ordered CBC Auto Diff [Complete Blood Count w/Auto] AM LABS Lab 12/15/22 04:00 Ordered CMP [Comprehensive Metabolic Panel] AM LABS Lab 12/14/22 04:00 Ordered Vitamin D 1,25 Dihydroxy Routine Lab 12/10/22 16:01 Received Laboratory Results WBC 4.8 10^3/uL (4.0-10.0) 12/13/22 04:59 RBC 3.22 10^6/uL (4.1-5.3) L 12/13/22 04:59 Hgb 9.8 g/dL (11.5-15.3) L 12/13/22 04:59 Hct 31.1 % (37.0-47.0) L 12/13/22 04:59 MCV 96.6 fl (81-99) 12/13/22 04:59 MCH 30.4 pg (28.0-34.0) 12/13/22 04:59 MCHC 31.5 g/dL (30.0-36.0) 12/13/22 04:59 RDW 15.9 % (12.1-15.1) H 12/13/22 04:59 Plt Count 234 10^3/cmm (130-400) 12/13/22 04:59 MPV 10.2 fL (7.4-10.4) 12/13/22 04:59 Neut % (Auto) 62.6 % 12/13/22 04:59 Lymph % (Auto) 25.2 % 12/13/22 04:59 Kidder % (Auto) 8.7 % 12/13/22 04:59 Eos % (Auto) 2.1 % 12/13/22 04:59 Baso % (Auto) 0.8 % 12/13/22 04:59 Neut # (Auto) 3.01 10^3/uL (1.8-7.7) 12/13/22 04:59 Lymph # (Auto) 1.2 10^3/uL (0.8-4.8) 12/13/22 04:59 Kidder # (Auto) 0.4 10^3/uL (0.2-0.9) 12/13/22 04:59 Eos # (Auto) 0.1 10^3/uL (0.0-0.8) 12/13/22 04:59 Baso # (Auto) 0.0 10^3/uL (0.0-0.1) 12/13/22 04:59 Nucleated RBC % (auto) 0 % 12/13/22 04:59 Nucleated RBCs # 0.0 /100WBC 12/13/22 04:59 Sodium 141 mmol/L (136-145) 12/13/22 04:59 Potassium 4.4 mmol/L (3.5-5.1) 12/13/22 04:59 Chloride 106 mmol/L (98-107) 12/13/22 04:59 Carbon Dioxide 27 mmol/L (22-29) 12/13/22 04:59 Anion Gap 12.4 (5-19) 12/13/22 04:59 BUN 6 mg/dL (8-23) L 12/13/22 04:59 Creatinine 0.7 mg/dL (0.5-0.9) 12/13/22 04:59 GFR Calculation 84.8 mL/min (90-130) L 12/13/22 04:59 Glucose 91 mg/dL (65-115) 12/13/22 04:59 Calculated Osmolality 289 mOsm/kg (285-295) 12/13/22 04:59 Calcium 8.6 mg/dL (8.5-10.5) 12/13/22 04:59 Ionized Calcium [place] 1.1 mmol/L (1.1-1.4) 12/12/22 04:55 Magnesium 1.5 mg/dL (1.7-2.3) L 12/13/22 04:59 Total Bilirubin 0.3 mg/dL (0.15-1.2) 12/13/22 04:59 AST 48 U/L (0-32) H 12/13/22 04:59 ALT 27 U/L (0-33) 12/13/22 04:59 Alkaline Phosphatase 138 U/L (35-105) H 12/13/22 04:59 Creatine Kinase 54 U/L (26-192) 12/10/22 11:38 Total Protein 5.4 g/dL (6.6-8.7) L 12/13/22 04:59 Albumin 2.7 g/dL (3.5-5.2) L 12/13/22 04:59 Globulin 2.7 g/dL (1.3-4.6) 12/13/22 04:59 Lipase 18 U/L (13-60) 12/10/22 08:50 25-OH Vitamin D Total 16 ng/mL (30-100) L 12/10/22 08:50 TSH 4.33 uIU/mL (0.27-4.20) H 12/10/22 08:50 PTH Intact 192.0 pg/mL (15-65) H 12/10/22 16:01 Calcium (PTH Intact) 6.6 mg/dL (8.5-10.5) L 12/10/22 16:01 Random Cortisol 36.06 ug/dL (2.47-19.5) H 12/10/22 16:01 Urine Color Trisha (Yellow) 12/10/22 10:40 Urine Appearance Cloudy (CLEAR) A 12/10/22 10:40 Urine pH 5 (5-7) 12/10/22 10:40 Ur Specific [place] 1.015 (1.005-1.030) 12/10/22 10:40 Urine Protein Trace (Negative) 12/10/22 10:40 Urine Glucose (UA) Norm (Normal) 12/10/22 10:40 Urine Ketones Negative (Negative) 12/10/22 10:40 Urine Blood 3+ (Negative) H 12/10/22 10:40 Urine Nitrate Negative (Negative) 12/10/22 10:40 Urine Bilirubin 1+ (Negative) H 12/10/22 10:40 Urine Urobilinogen Norm mg/dL (Negative) 12/10/22 10:40 Ur Leukocyte Esterase 2+ (Negative) H 12/10/22 10:40 Urine RBC 5-10 /hpf (0-2) H 12/10/22 10:40 Urine WBC >100 /hpf (0-5) H 12/10/22 10:40 Ur Squamous Epith Cells 5-10 /hpf (0-5) H 12/10/22 10:40 Amorphous Sediment Not Reportable 12/10/22 10:40 Urine Bacteria 1+ /hpf (NONE) H 12/10/22 10:40 Vitals Last Vital Signs Temp 97.7 F 12/13/22 07:23 Pulse 61 12/13/22 07:23 Resp 16 12/13/22 07:23 BP 148/80 12/13/22 07:23 Pulse Ox 96 12/13/22 07:23 O2 Del Method Room Air 12/13/22 07:23 Discharge Plan Discharge Patient Disposition: Home Condition: Stable Prescriptions: New vancomycin 1,000 mg Recon Soln 125 mg PO QID 7 Days Qty: 28 0RF calcium carbonate 200 mg calcium (500 mg) Tablet,Chewable 500 mg PO Q4H 14 Days Qty: 210 0RF cholecalciferol (vitamin D3) 125 mcg (5,000 unit) Tablet 5,000 unit PO DAILY 30 Days Qty: 30 3RF levofloxacin 750 mg tablet 750 mg PO DAILY 4 Days Qty: 4 0RF magnesium L-lactate 84 mg tablet extended release 84 mg PO BID Qty: 14 0RF Continued omeprazole 20 mg capsule,delayed release(DR/EC) 20 mg PO BID Qty: 180 3RF losartan 100 mg tablet 100 mg PO DAILY Qty: 90 3RF levothyroxine 50 mcg tablet 50 mcg PO DAILY Qty: 30 11RF metoprolol succinate 100 mg tablet extended release 24 hr 200 mg PO DAILY 90 Days Qty: 180 1RF fluoxetine 40 mg capsule 40 mg PO DAILY atorvastatin 40 mg tablet 40 mg PO QAM Allergy Eye (ketotifen) 0.025 % (0.035 %) drops 1 drp ophthalmic (eye) BID PRN (Reason: allergy eyes) Rx Instructions: do not exceed 2 doses in a 24 hour period furosemide 20 mg tablet 20 mg PO QAM potassium chloride 20 mEq tablet extended release 20 meq PO DAILY Discharge Orders: Discharge Order (Routine); Ordered 12/13/22 Ordered By: Mane Cruz Other Ambulatory Orders: Basic Metabolic Panel (Routine) Timeframe: 1 Week Facility: [facility] - Location: Lab - Main Lab Ordered By: Mane Cruz Magnesium (Routine) Timeframe: 1 Week Facility: [facility] - Location: Lab - Main Lab Ordered By: Mane Cruz Phosphorus (Routine) Timeframe: 1 Week Facility: [facility] - Location: Lab - Main Lab Ordered By: Mane Cruz Referrals: Thomas Gama MD [Primary Care Provider] - 12/21/22 1:00 pm Patient Instructions: Clostridium Difficile, Levofloxacin (By mouth), Vancomycin (By mouth), Urinary Tract Infection in Women (DC), Hypocalcemia (DC), Hypomagnesemia (DC), Opioid Safety Discharge Attestations Time Spent in Discharge Care*: less than 30 min Quality Metrics Clinical Quality Measures [ No reported AMI, CVA or VTE this stay] Coding Level of Care Code Acute Code for Chg Fwd Diagnoses Hypocalcemia E83.51 Hypomagnesemia E83.42 UTI (urinary tract infection) N30.01 Hematuria presence: with hematuria Urinary tract infection type: acute cystitis Irritable bowel syndrome with diarrhea K58.0 Clostridioides difficile diarrhea A04.72 Acute kidney injury superimposed on CKD N17.9; N18.9 Diarrhea R19.7
[2022-12-13] MEDS: magnesium sulfate premix 2 GM/50 ML PIGGYBACK IV (09:52)
[2022-12-13] MEDS: losartan 50 mg Tablet 100 MG PO (09:52)
[2022-12-13] MEDS: cholecalciferol (vitamin D3) 5,000 unit Tablet 5000 UNIT PO (09:53)
--- NOTE | 2022-12-14 11:48 | PC.SOCIAL ---
TCM call completed, message sent to Dr. Shaikh office to schedule follow up.
[2022-12-15 10:45] LABS: Vit D 1,25 (Oh)2, Total 77 pg/mL (18-72); Vit D2 1,25 (Oh)2 <8 pg/mL; Vit D3 1,25 (Oh)2 77 pg/mL
== END 2022-12-13 12:00 | disposition home or self-care (01) | DRG 372 ==
LOC: ER 13:02 → MEDSURG 13:17
PROVIDERS: Admitting Provider Student in an Organized Health Care Education/Training Program; Emergency Provider Physician Assistant; PCP Family Medicine Adult Medicine; Visit Provider Internal Medicine
DX: A04.72 Enterocolitis due to Clostridium difficile, not specified as recurrent (principal); N17.9 Acute kidney failure, unspecified; N30.01 Acute cystitis with hematuria; R29.0 Tetany; K58.0 Irritable bowel syndrome with diarrhea; E83.51 Hypocalcemia; E83.42 Hypomagnesemia; F41.9 Anxiety disorder, unspecified; I12.9 Hypertensive chronic kidney disease with stage 1 through stage 4 chronic kidney disease, or unspecified chronic kidney disease; N18.9 Chronic kidney disease, unspecified; K21.9 Gastro-esophageal reflux disease without esophagitis; E78.5 Hyperlipidemia, unspecified; E03.9 Hypothyroidism, unspecified; E66.09 Other obesity due to excess calories; Z68.36 Body mass index [BMI] 36.0-36.9, adult; M19.90 Unspecified osteoarthritis, unspecified site; I73.9 Peripheral vascular disease, unspecified; Z96.652 Presence of left artificial knee joint; Z85.820 Personal history of malignant melanoma of skin; F17.200 Nicotine dependence, unspecified, uncomplicated
CPT/HCPCS: 36415; 80048; 80053; 81001; 82306; 82310; 82330; 82533; 82550; 82652; 83690; 83735; 83970; 84443; 85025; 87077; 87086; 87186; 87493; 87506; 93005; 96365; 96367; 99285; G0378; J0610; J0696; J3370; J3475; J3480; J7030

== ENCOUNTER → 2022-12-21 13:34 | Outpatient (BNVA) | payer MEDICARE, SELFPAY | PROVIDERS: PCP Family Medicine Adult Medicine; Visit Provider Family Medicine Adult Medicine | DX: I10 Essential (primary) hypertension (principal); N18.2 Chronic kidney disease, stage 2 (mild); E83.42 Hypomagnesemia; E55.9 Vitamin D deficiency, unspecified | CPT/HCPCS: 80053; 83735; 84100 ==

== ENCOUNTER → 2023-03-13 14:10 | Outpatient (BNVA) | payer SELFPAY | PROVIDERS: PCP Family Medicine Adult Medicine; Visit Provider Family Medicine Adult Medicine | DX: E03.9 Hypothyroidism, unspecified (principal); I10 Essential (primary) hypertension; N18.2 Chronic kidney disease, stage 2 (mild); D63.8 Anemia in other chronic diseases classified elsewhere | CPT/HCPCS: 80053; 84443; 85025 ==

== ENCOUNTER → 2023-11-26 09:16 | Outpatient (BNVA) | payer MEDICARE, SELFPAY | PROVIDERS: PCP Family Medicine Adult Medicine; Visit Provider Podiatrist Foot & Ankle Surgery | DX: W01.0XXA Fall on same level from slipping, tripping and stumbling without subsequent striking against object, initial encounter; M65.9 Synovitis and tenosynovitis, unspecified; S92.351A Displaced fracture of fifth metatarsal bone, right foot, initial encounter for closed fracture | CPT/HCPCS: 73630; 99213 ==

== ENCOUNTER → 2024-11-20 09:36 | Outpatient (BNVA) | payer SELFPAY | PROVIDERS: PCP Family Medicine; Visit Provider Dermatology | DX: Z01.89 Encounter for other specified special examinations (principal) | CPT/HCPCS: 80053; 80061; 82306; 83036; 84443; 85025 ==

== ENCOUNTER → 2025-01-12 11:50 | Outpatient (BNVA) | payer OTHER, MEDICARE, SELFPAY | PROVIDERS: PCP Family Medicine; Visit Provider Family Medicine | DX: E03.9 Hypothyroidism, unspecified (principal) | CPT/HCPCS: 84439; 84443 ==

== ENCOUNTER 2025-01-16 13:02 | Outpatient (CLI) | payer MEDICARE, SELFPAY ==
--- NOTE | 2025-01-16 13:20 | MM_ITS ---
WS: [id number] BILATERAL 3D TOMOSYNTHESIS DIGITAL SCREENING MAMMOGRAPHY WITH CAD CLINICAL INFORMATION: screening HISTORY: Screening mammogram. No current complaints. COMPARISON: 2014 TECHNIQUE: Bilateral CC and MLO views. FINDINGS: Scattered fibroglandular densities bilaterally. No suspicious focal mass, asymmetry, calcifications, or architectural distortion. No evidence of malignancy. Incidental punctate and lucent centered calcifications. Vascular calcifications. MM/MM scr tomosynthesis [id number] IMPRESSION: DENSITY: There are scattered areas of fibroglandular density. BI-RADS: 2 - Benign. FOLLOW UP: 1 Year Follow-up Recommend return to annual screening mammography.
== END 2025-01-16 13:03 | disposition home or self-care (01) ==
LOC: RAD 13:04
PROVIDERS: PCP Family Medicine; Visit Provider Family Medicine
DX: Z12.31 Encounter for screening mammogram for malignant neoplasm of breast (principal); R92.323 Mammographic fibroglandular density, bilateral breasts; R92.1 Mammographic calcification found on diagnostic imaging of breast
CPT/HCPCS: 77063; 77067

== ENCOUNTER → 2025-03-18 09:45 | Outpatient (BNVA) | payer MEDICARE, SELFPAY | PROVIDERS: PCP Family Medicine; Visit Provider Podiatrist Foot & Ankle Surgery | DX: G57.61 Lesion of plantar nerve, right lower limb (principal); L60.3 Nail dystrophy | CPT/HCPCS: 73630; 99214 ==

== ENCOUNTER 2025-04-01 13:42 | Outpatient (CLI) | payer MEDICARE, SELFPAY ==
--- NOTE | 2025-04-01 14:00 | US_ITS ---
WS: [id number] ULTRASOUND SOFT TISSUES HISTORY: rule out neuroma COMPARISON: None available. TECHNIQUE: 2-D and color Doppler imaging is submitted. Limited evaluation of the intermetatarsal spaces. There is some very subtle increased soft tissue and decreased echogenicity in the third intermetatarsal space. Area of abnormality measures 7 x 10 mm. No forefoot compression was performed. 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 This can be correlated by MRI if clinically thought necessary.
== END 2025-04-01 13:43 | disposition home or self-care (01) ==
LOC: RAD 13:44
PROVIDERS: PCP Family Medicine; Visit Provider Podiatrist Foot & Ankle Surgery
DX: G57.61 Lesion of plantar nerve, right lower limb (principal)
CPT/HCPCS: 76882

== ENCOUNTER → 2025-04-21 11:20 | Outpatient (BNVA) | payer MEDICARE, SELFPAY | PROVIDERS: PCP Family Medicine; Visit Provider Podiatrist Foot & Ankle Surgery | DX: G57.61 Lesion of plantar nerve, right lower limb (principal); B35.1 Tinea unguium | CPT/HCPCS: 99214 ==